=== PATIENT | female | born 1950 | race African-American/Black ===

== ENCOUNTER 2018-11-22 20:59 | Emergency (ER) | payer MEDICARE, MEDICAID ==
[~2018-11-22] VITALS: Ht 160 cm; Wt 60.8 kg
[~2018-11-22 20:59] MED LIST: AMLO10TA13 PO; CALC667C PO; CARV12.544 PO; HYDR-3682 PO; IBU600T PO; OME20T PO; PRAV20TA3 PO; SERT-275 PO
[2018-11-22] MEDS ORDERED: cloNIDine HCL 0.1 MG TAB PO ONE (21:15)
[2018-11-22 21:31] LABS: Basophils # (auto) 0.1 uL; Basophils % (auto) 2.1 % (0.0-2.0); Eosinophils # (auto) 0.2 uL; Hematocrit 35.1 % (36.0-46.0); Hemoglobin 11.5 g/dL (12.2-16.2); Lymphocytes # (auto) 0.8 uL; Lymphocytes % (auto) 19.6 % (10.0-50.0); Mean Corpuscular Hemoglobin 28.6 pg (28.0-32.0); Mean Corpuscular Hgb Conc. 32.9 g/dL (32.0-36.0); Mean Corpuscular Volume 87.1 fL (80.0-100.0); Monocytes # (auto) 0.5 uL; Monocytes % (auto) 11.3 % (0.0-12.0); Neutrophils # (auto) 2.5 uL; Nucleated Red Blood Cells % 0.1 %; Platelet Count (auto) 220 10^3/uL (140-450); Red Blood Cells 4.03 10^6/uL (4.0-5.20); Red Cell Distribution Width 16.5 % (11.8-14.3)
[2018-11-22 21:43] LABS: Albumin 3.6 g/dL (3.4-5.0); Anion Gap 13 (5-15); Calcium 8.4 mg/dL (8.5-10.1); Carbon Dioxide 29 mmol/L (21-32); Chloride 93 mmol/L (98-107); Glucose 282 mg/dL (74-106); Magnesium 2.6 mg/dL (1.6-2.6); Potassium 4.3 mmol/L (3.5-5.1); Sodium 135 mmol/L (136-145)
[2018-11-22 21:51] LABS: Alanine Aminotransferase 13 U/L (13-56); Alkaline Phosphatase 187 U/L (45-117); Aspartate Aminotransferase 13 U/L (15-37); BUN/Creatinine Ratio 8.5; Bilirubin, Total 0.3 mg/dL (0.2-1.0); GFR African American 5 mL/min; GFR Non-African American 4 mL/min; Total Protein 7.6 g/dL (6.4-8.2)
[2018-11-22 21:55] LABS: Blood Urea Nitrogen 81 mg/dL (7-18)
[2018-11-23] MEDS ORDERED: LABETALOL HCL 5 MG/ML ML 20ML VIAL IV ONE ×2 (00:15→01:15)
[2018-11-23] MEDS ORDERED: hydrALAZINE HCL 20 MG/ML VL IV ONE ×2 (02:30→03:30)
[2018-11-23 05:38] VITALS: BP 187/82
== END 2018-11-23 05:46 | disposition home or self-care (01) ==
LOC: ER 21:06
DX: I16.0 Hypertensive urgency (principal); J01.00 Acute maxillary sinusitis, unspecified; E11.22 Type 2 diabetes mellitus with diabetic chronic kidney disease; I12.0 Hypertensive chronic kidney disease with stage 5 chronic kidney disease or end stage renal disease; N18.6 End stage renal disease; Z79.899 Other long term (current) drug therapy
CPT/HCPCS: 36415; 71045; 80053; 83735; 84484; 85025; 85379; 93005; 94761; 96374; 96375; 96376; 99284; J0360

== ENCOUNTER 2019-02-02 08:49 | Inpatient (IN) | payer MEDICARE, MEDICAID ==
[~2019-02-02] VITALS: Ht 160 cm; Wt 62.2 kg
[2019-02-02 10:13] LABS: Basophils # (auto) 0 uL; Basophils % (auto) 0.9 % (0.0-2.0); Eosinophils # (auto) 0.1 uL; Eosinophils % (auto) 1.3 % (0.0-7.0); Hematocrit 31.8 % (36.0-46.0); Hemoglobin 10.6 g/dL (12.2-16.2); Lymphocytes # (auto) 0.5 uL; Mean Corpuscular Hemoglobin 28.9 pg (28.0-32.0); Mean Corpuscular Hgb Conc. 33.2 g/dL (32.0-36.0); Mean Corpuscular Volume 87.2 fL (80.0-100.0); Monocytes # (auto) 0.2 uL; Neutrophils # (auto) 3.4 uL; Neutrophils % (auto) 81.8 % (37.0-80.0); Platelet Count (auto) 211 10^3/uL (140-450); Red Blood Cells 3.65 10^6/uL (4.0-5.20); Red Cell Distribution Width 18.4 % (11.8-14.3); White Blood Cell 4.2 10^3/uL (4.4-10.8)
[2019-02-02 10:39] LABS: Alanine Aminotransferase 19 U/L (13-56); Albumin 3.7 g/dL (3.4-5.0); Amylase 107 U/L (25-115); Aspartate Aminotransferase 12 U/L (15-37); BUN/Creatinine Ratio 9.1; Blood Urea Nitrogen 66 mg/dL (7-18); Calcium 8.6 mg/dL (8.5-10.1); Chloride 94 mmol/L (98-107); GFR African American 7 mL/min; GFR Non-African American 6 mL/min; Glucose 346 mg/dL (74-106); Lipase 205 U/L (73-393); Magnesium 2.5 mg/dL (1.6-2.6); Potassium 4.6 mmol/L (3.5-5.1); Sodium 134 mmol/L (136-145)
[2019-02-02 10:51] LABS: Alkaline Phosphatase 187 U/L (45-117); Anion Gap 13 (5-15); Bilirubin, Total 0.4 mg/dL (0.2-1.0); Carbon Dioxide 27 mmol/L (21-32); Total Protein 7.8 g/dL (6.4-8.2)
[2019-02-02] MEDS ORDERED: SODIUM CHLORIDE 0.9% 1,000 ML IV ONE (11:38)
[2019-02-02] MEDS ORDERED: PROMETHAZINE HCL 25 MG/ML 1ML IV PRN (11:45)
[2019-02-02] MEDS ORDERED: NALBUPHINE HCL 10 MG/1ml INJECTION IV ONE (11:45)
[2019-02-02] MEDS ORDERED: MORPHINE SULF INJ 2 MG/ML SYRINGE 1ML IV PRN (14:30)
[2019-02-02] MEDS ORDERED: DEXTROSE (50%) 50ML SYRG IV PRN (14:30)
[2019-02-02] MEDS ORDERED: NITROGLYCERIN 0.4 MG SL TAB SL PRN (14:30)
[2019-02-02 17:17] VITALS: BP 163/72
[2019-02-02] MEDS: PRAVASTATIN SODIUM 20 MG TAB PO SCH (17:34)
[2019-02-02] MEDS: ACCU-CHEK COMFORT CURVE STRIP VI SCH ×2 (17:42→21:42)
[2019-02-02] MEDS: InsuLIN REG 1unit/0.01ml Soln (100units/ml) SC SCH ×2 (17:42→21:44)
[2019-02-02] MEDS: LABETALOL HCL 5 MG/ML ML 20ML VIAL IV PRN (17:43)
[2019-02-02] MEDS: CALCIUM ACETATE 667 MG CAP PO SCH (21:23)
[2019-02-02] MEDS: DOCUSATE SOD 100 MG CAP PO SCH (21:41)
[2019-02-02] MEDS: METOCLOPRAMIDE HCL 5MG/ml INJ 2ml VIAL IV SCH (21:41)
[2019-02-02] MEDS: CARVEDILOL 12.5 MG TAB PO SCH (21:42)
[2019-02-02 21:59] VITALS: BP 148/67
[2019-02-03 04:40] VITALS: BP 162/72
[2019-02-03] MEDS: LABETALOL HCL 5 MG/ML ML 20ML VIAL IV PRN ×2 (04:52→07:05)
[2019-02-03] MEDS: CALCIUM ACETATE 667 MG CAP PO SCH ×3 (06:00→22:00)
[2019-02-03] MEDS: METOCLOPRAMIDE HCL 5MG/ml INJ 2ml VIAL IV SCH ×3 (06:12→21:15)
[2019-02-03 06:24] LABS: Basophils # (auto) 0 uL; Basophils % (auto) 0.7 % (0.0-2.0); Eosinophils # (auto) 0.2 uL; Eosinophils % (auto) 3.2 % (0.0-7.0); Hematocrit 29.1 % (36.0-46.0); Hemoglobin 9.6 g/dL (12.2-16.2); Lymphocytes % (auto) 20.5 % (10.0-50.0); Mean Corpuscular Hemoglobin 29.1 pg (28.0-32.0); Mean Corpuscular Hgb Conc. 33.2 g/dL (32.0-36.0); Mean Corpuscular Volume 87.8 fL (80.0-100.0); Monocytes # (auto) 0.3 uL; Monocytes % (auto) 6.9 % (0.0-12.0); Neutrophils # (auto) 3.3 uL; Neutrophils % (auto) 68.7 % (37.0-80.0); Nucleated Red Blood Cells % 0.1 %; Platelet Count (auto) 200 10^3/uL (140-450); Red Blood Cells 3.32 10^6/uL (4.0-5.20); Red Cell Distribution Width 18.7 % (11.8-14.3); White Blood Cell 4.8 10^3/uL (4.4-10.8)
[2019-02-03] MEDS: ACCU-CHEK COMFORT CURVE STRIP VI SCH ×4 (06:33→22:29)
[2019-02-03] MEDS: InsuLIN REG 1unit/0.01ml Soln (100units/ml) SC SCH ×4 (06:34→22:29)
[2019-02-03 06:40] LABS: Calcium 8.3 mg/dL (8.5-10.1); Potassium 4.6 mmol/L (3.5-5.1)
[2019-02-03 06:41] LABS: INR 0.96 (0.9-1.15); Partial Thromboplastin Time 26.9 sec (23.64-32.05)
[2019-02-03 06:42] LABS: BUN/Creatinine Ratio 8.7
[2019-02-03 08:00] VITALS: BP 162/70
--- NOTE | 2019-02-03 08:05 | NUR ---
Opening Shift Note Received report on the patient. Awake lying in bed. Patient shows no signs of distress at this time. Discussed the plan of care with the patient. Bed is in the lowest position, side rails up x2, and call light is within reach. Will continue to monitor.
[2019-02-03 09:00] VITALS: BP 155/69
[2019-02-03] MEDS ORDERED: OMEPRAZOLE 20MG/10ML ORAL SUSP PO SCH (10:00)
[2019-02-03] MEDS: DOCUSATE SOD 100 MG CAP PO SCH ×2 (10:00→21:17)
[2019-02-03] MEDS ORDERED: PANTOPRAZOLE 40 MG TAB PO SCH (10:00)
[2019-02-03] MEDS ORDERED: SERTRALINE HCL 50 MG TAB PO SCH (10:00)
[2019-02-03] MEDS: amLODIPine BESYLATE 5 MG TAB PO SCH (10:08)
[2019-02-03] MEDS: CARVEDILOL 12.5 MG TAB PO SCH ×2 (10:08→21:16)
[2019-02-03] MEDS ORDERED: diphenhdrAMINE HCL 50 MG/1 ML VL IM ONE (11:45)
[2019-02-03] MEDS ORDERED: diphenhdrAMINE HCL 50 MG/1 ML VL ONE (11:56)
[2019-02-03 13:00] VITALS: BP 157/68
[2019-02-03] MEDS ORDERED: LOPERAMIDE HCL 2 MG CAP PO ONE (16:30)
[2019-02-03] MEDS ORDERED: LOPERAMIDE HCL 2 MG CAP PO PRN (16:30)
--- NOTE | 2019-02-03 17:01 | NUR ---
GI Consult GI Consult called in by community living specialist, no answer. paralegal legal secretary left a message.
[2019-02-03] MEDS: PRAVASTATIN SODIUM 20 MG TAB PO SCH (17:33)
--- NOTE | 2019-02-03 19:57 | NUR ---
Opening Shift Note Assumed care of patient, awake and alert. No S/S of distress/SOB or pain. Instructed on POC and to call for assist PRN, will continue to monitor for changes Q1hr and PRN.
--- NOTE | 2019-02-03 20:00 | NUR ---
Called/paged Dr. Renu Pierce. called re:itching medicine . Waiting for call back. Continue care.
[2019-02-03 22:00] VITALS: BP 158/80
--- NOTE | 2019-02-03 22:00 | NUR ---
Called/paged Dr. Renu Pierce. called re:itching med. . Waiting for call back. Continue care.
--- NOTE | 2019-02-03 23:03 | NUR ---
Called/paged Dr. Renu Pierce. called re:itching med. . Waiting for call back. Continue care.
--- NOTE | 2019-02-04 03:28 | NUR ---
returned call Dr. Sears,T returned call, updated on patient status and reason for call, orders received of hydroxyzine 25mg.p.o.one tab. every 6 hours as needed for itching. Continue care.
[2019-02-04] MEDS ORDERED: hydrOXYzine 25 MG TAB or CAP PO PRN (03:30)
[2019-02-04 04:58] VITALS: BP 150/69
[2019-02-04] MEDS: CALCIUM ACETATE 667 MG CAP PO SCH ×2 (05:35→14:00)
[2019-02-04 05:39] LABS: Urine Bacteria FEW /hpf (None Seen); Urine Blood Negative /uL (Negative); Urine Specific Gravity 1.014 (1.001-1.035); Urine WBC 26 /hpf (0 - 5)
[2019-02-04] MEDS: ACCU-CHEK COMFORT CURVE STRIP VI SCH ×2 (06:07→11:30)
[2019-02-04] MEDS: InsuLIN REG 1unit/0.01ml Soln (100units/ml) SC SCH ×2 (06:08→11:30)
--- NOTE | 2019-02-04 06:42 | NUR ---
Called/paged Dr. Sears, T called re:patient positive for urinary tract infection. . Waiting for call back. Continue care.
--- NOTE | 2019-02-04 06:45 | NUR ---
returned call Kari Hazel. returned call, updated on patient status and reason for call, orders received Rocephine one gram daily. Continue care.
[2019-02-04] MEDS ORDERED: SODIUM CHL 0.9% 1000 ML BAG XX ONE (07:00)
--- NOTE | 2019-02-04 07:34 | NUR ---
Report given to Suzanna Victoria, patient is resting no distress, for hemodialysis today.
--- NOTE | 2019-02-04 07:35 | NUR ---
Opening Shift Note Assumed care of patient, awake and alert. No S/S of distress/SOB or pain reported at this time. Instructed on POC and to call for assist PRN, bed alarm on and call light within reach, will continue to monitor for changes Q1hr and PRN.
[2019-02-04 08:00] VITALS: BP 161/70
[2019-02-04 09:00] VITALS: BP 161/70
[2019-02-04] MEDS ORDERED: cefTRIAXone 1GM/50ML D5W 50 ML IV SCH (09:00)
--- NOTE | 2019-02-04 10:00 | NUR ---
DAILY MEDICATION HELD DUE TO PENDING DIALYSIS
[2019-02-04] MEDS ORDERED: ACETAMINOPHEN 325 MG TAB PO PRN (11:30)
--- NOTE | 2019-02-04 12:25 | NUR ---
DIALYSIS IN PROCESS
[2019-02-04] MEDS ORDERED: diphenhdrAMINE HCL 50 MG/1 ML VL IV ONE (12:30)
[2019-02-04 13:00] VITALS: BP 188/88
--- NOTE | 2019-02-04 13:42 | NUR ---
GI DR MULLINS AT BEDSIDE, DISCUSSING POC WITH PT AND FAMILY, CONT CARE
[2019-02-04] MEDS: CARVEDILOL 12.5 MG TAB PO SCH (14:11)
[2019-02-04] MEDS: amLODIPine BESYLATE 5 MG TAB PO SCH (14:11)
--- NOTE | 2019-02-04 14:42 | NUR ---
DIALYSIS COMPLETE 2 LITERS REMOVED, VS 142/70, P 72, PT ASYMPTOMATIC, NO C/O PAIN, SOB OR ANY OTHER DISCOMFORT, CONT CARE
--- NOTE | 2019-02-04 15:00 | NUR ---
MD JOSS COREAS, REGARDING PATIENT REQUESTING TO BE DISCHARGED SINCE GI ORDERED NO FURTHER MEDICAL INTERVENTION AND SHE IS NO LONGER C/O ABD PAIN, PT ENCOURAGED TO WAIT FOR MD, STATES " IF I HAVE TO LEAVE AGAINST MEDICAL ADVICE, I WILL", WILL WAIT FOR MD TO CALL BACK, CONT CARE
--- NOTE | 2019-02-04 15:56 | NUR ---
MD JOSS COREAS, PATIENT REQUESTING TO LEAVE AGAINST MEDICAL ADVICE, STATES " THE GI DOCTOR SAID I CAN COME SEE HIM OUTPATIENT, I DONT HAVE PAIN ANYMORE", PATIENT IN TEARS, SPEAKING TO FAMILY OVER THE PHONE, CALLING FOR TRANSPORTATION, PATIENT ENCOURAGED TO STAY, AWAITING MD CALL BACK, [facility]
--- NOTE | 2019-02-04 16:15 | NUR ---
PATIENT AMBULATING WITH PHYSICAL THERAPIST PT TOLERATING WELL, CONT CARE
--- NOTE | 2019-02-04 16:45 | NUR ---
assessment Per consult discharge planning. Patient left AMA prior to being assessed. Addendum: 02/05/19 at 1519 by Shreya Malone Amended: Links added.
--- NOTE | 2019-02-04 16:52 | NUR ---
AMA Note EARLENE MARTINEZ states they want to leave the hospital Against Medical Advice (AMA). Patient encouraged to stay for further treatment/ and stabilization. Crescencio Gomez ([employer]) paged to notify of patient's wishes. Patient advised of the risks and benefits of leaving AMA. Patient verbalized understanding. Patient encouraged to return to the ER if symptoms do not improve or worsen. IV removed and catheter tip was inspected, intact, Tele returned to ICU, family accompanied patient upon leaving
--- NOTE | 2019-02-04 16:54 | NUR ---
LEAD PRESSMAN Crescencio Gomez paged regarding patient leaving AMA
--- NOTE | 2019-02-04 17:03 | NUR ---
MD CALL BACK (ATLASSIAN ADMINISTRATOR) ОЛЬГА VERA AND DR VITAL CALLED BACK AND MADE AWARE PATIENT LEFT AMA, CONT CARE
[2019-02-04] MEDS ORDERED: EPOETIN ALFA 4,000 UNIT/ML VL SC ONE (21:00)
== END 2019-02-04 16:52 | disposition left against medical advice (07) | DRG 391 ==
LOC: EDBD 08:49 → ER 08:53 → TELE 08:54 → TELE-CENTR 17:21
PROVIDERS: ADMIT Nurse Practitioner Acute Care; ATTEND Internal Medicine
PROC: 5A1D70Z Performance of Urinary Filtration, Intermittent, Less than 6 Hours Per Day (ICD-10-PCS; principal; 2019-02-04)
DX: K29.70 Gastritis, unspecified, without bleeding (principal); N18.6 End stage renal disease; I50.33 Acute on chronic diastolic (congestive) heart failure; I13.2 Hypertensive heart and chronic kidney disease with heart failure and with stage 5 chronic kidney disease, or end stage renal disease; I44.7 Left bundle-branch block, unspecified; E11.22 Type 2 diabetes mellitus with diabetic chronic kidney disease; D63.1 Anemia in chronic kidney disease; E78.5 Hyperlipidemia, unspecified; E78.00 Pure hypercholesterolemia, unspecified; F32.9 Major depressive disorder, single episode, unspecified; F41.9 Anxiety disorder, unspecified; Z53.29 Procedure and treatment not carried out because of patient's decision for other reasons; K21.9 Gastro-esophageal reflux disease without esophagitis; Z79.899 Other long term (current) drug therapy; Z99.2 Dependence on renal dialysis; Z86.73 Personal history of transient ischemic attack (TIA), and cerebral infarction without residual deficits; Z79.4 Long term (current) use of insulin; Z82.49 Family history of ischemic heart disease and other diseases of the circulatory system; Z90.710 Acquired absence of both cervix and uterus
CPT/HCPCS: 36415; 71046; 74176; 80048; 80053; 81001; 82150; 82728; 82962; 83036; 83690; 83735; 84484; 85025; 85610; 85730; 86141; 87086; 90935; 93005; 96374; 96375; G0378; J1815

== ENCOUNTER 2020-06-27 12:43 | Emergency (ER) | payer MEDICARE, MEDICAID ==
[~2020-06-27] VITALS: Ht 160 cm; Wt 56.2 kg
[~2020-06-27 12:43] MED LIST changes: +AMLO-496 PO; -AMLO10TA13 PO; -IBU600T PO; +IBUP600T28 PO
[2020-06-27] MEDS ORDERED: cefTRIAXone SOD 1,000 MG VL IM ONE (14:45)
[2020-06-27] MEDS ORDERED: LIDOCAINE 1% HCL (LOCAL ANESTH.) INJ 20ML MDV IJ ONE (14:45)
[2020-06-27 15:30] VITALS: BP 189/69
== END 2020-06-27 15:40 | disposition home or self-care (01) ==
LOC: ER 12:43
DX: M27.2 Inflammatory conditions of jaws (principal); L02.01 Cutaneous abscess of face; E11.22 Type 2 diabetes mellitus with diabetic chronic kidney disease; I12.0 Hypertensive chronic kidney disease with stage 5 chronic kidney disease or end stage renal disease; N18.6 End stage renal disease; E78.5 Hyperlipidemia, unspecified; Z90.710 Acquired absence of both cervix and uterus; Z86.73 Personal history of transient ischemic attack (TIA), and cerebral infarction without residual deficits
CPT/HCPCS: 10060; 87205; 96372; 99283; J0696; J2001

== ENCOUNTER 2020-06-30 14:15 | Emergency (ER) | payer MEDICARE, MEDICAID ==
[~2020-06-30] VITALS: Ht 160 cm; Wt 56.7 kg
[~2020-06-30 14:15] MED LIST changes: -SERT-275 PO; +SERT25TA14 PO
[2020-06-30 14:17] VITALS: BP 150/48
== END 2020-06-30 16:22 | disposition home or self-care (01) ==
LOC: ER 14:15
DX: Z48.00 Encounter for change or removal of nonsurgical wound dressing (principal); K21.9 Gastro-esophageal reflux disease without esophagitis; E11.22 Type 2 diabetes mellitus with diabetic chronic kidney disease; I12.9 Hypertensive chronic kidney disease with stage 1 through stage 4 chronic kidney disease, or unspecified chronic kidney disease; N18.6 End stage renal disease; E78.5 Hyperlipidemia, unspecified; Z90.710 Acquired absence of both cervix and uterus; Z79.899 Other long term (current) drug therapy

== ENCOUNTER 2020-07-07 11:30 | Emergency (ER) | payer MEDICARE, MEDICAID ==
[~2020-07-07] VITALS: Ht 160 cm; Wt 61.7 kg
[~2020-07-07 11:30] MED LIST changes: +SERT-275 PO; -SERT25TA14 PO
[2020-07-07 11:56] VITALS: BP 188/68
== END 2020-07-07 13:20 | disposition home or self-care (01) ==
LOC: ER 11:30
DX: M27.2 Inflammatory conditions of jaws (principal); E11.22 Type 2 diabetes mellitus with diabetic chronic kidney disease; I12.0 Hypertensive chronic kidney disease with stage 5 chronic kidney disease or end stage renal disease; N18.6 End stage renal disease; K21.9 Gastro-esophageal reflux disease without esophagitis; E78.5 Hyperlipidemia, unspecified; Z90.710 Acquired absence of both cervix and uterus; Z79.899 Other long term (current) drug therapy

== ENCOUNTER 2020-08-05 08:35 | Emergency (ER) | payer MEDICARE, MEDICAID ==
[~2020-08-05] VITALS: Ht 160 cm; Wt 57.2 kg
[~2020-08-05 08:35] MED LIST changes: -SERT-275 PO; +SERT25TA14 PO
[2020-08-05 09:20] VITALS: BP 161/50
== END 2020-08-05 09:37 | disposition home or self-care (01) ==
LOC: ER 08:35
DX: S00.03XA Contusion of scalp, initial encounter (principal); E11.9 Type 2 diabetes mellitus without complications; I10 Essential (primary) hypertension; E78.5 Hyperlipidemia, unspecified; Z86.73 Personal history of transient ischemic attack (TIA), and cerebral infarction without residual deficits; Z90.49 Acquired absence of other specified parts of digestive tract; Z79.899 Other long term (current) drug therapy; Z90.710 Acquired absence of both cervix and uterus; W01.0XXA Fall on same level from slipping, tripping and stumbling without subsequent striking against object, initial encounter; Y93.89 Activity, other specified; Y92.89 Other specified places as the place of occurrence of the external cause; Y99.8 Other external cause status
CPT/HCPCS: 70450

== ENCOUNTER 2020-08-24 02:58 | Inpatient (IN) | payer MEDICARE, MEDICAID ==
[~2020-08-24] VITALS: Ht 160 cm; Wt 56.6 kg
[2020-08-24 04:20] LABS: Basophils # (auto) 0 10 ^3/uL (0-0.2); Basophils % (auto) 0.6 % (0.0-2.0); Eosinophils # (auto) 0.1 10 ^3/uL (0-0.8); Eosinophils % (auto) 1.7 % (0.0-7.0); Hematocrit 36.3 % (36.0-46.0); Lymphocytes # (auto) 0.3 10 ^3/uL (0.4-5.4); Lymphocytes % (auto) 6.2 % (10.0-50.0); Mean Corpuscular Hemoglobin 29.5 pg (28.0-32.0); Mean Corpuscular Hgb Conc. 33.1 g/dL (32.0-36.0); Mean Corpuscular Volume 89.1 fL (80.0-100.0); Monocytes # (auto) 0.2 10 ^3/uL (0-1.3); Neutrophils # (auto) 4.3 10 ^3/uL (1.6-8.6); Neutrophils % (auto) 87.5 % (37.0-80.0); Nucleated Red Blood Cells % 0.1 %; Platelet Count (auto) 217 10^3/uL (140-450); Red Blood Cells 4.08 10^6/uL (4.0-5.20); Red Cell Distribution Width 19.5 % (11.8-14.3); White Blood Cell 4.9 10^3/uL (4.4-10.8)
[2020-08-24 04:34] LABS: INR 1.04 (0.9-1.15)
[2020-08-24 04:42] LABS: Albumin 3.3 g/dL (3.4-5.0); Anion Gap 16 (5-15); Blood Alcohol < 3.0 mg/dL (0-5); Calcium 9.1 mg/dL (8.5-10.1); Carbon Dioxide 26 mmol/L (21-32); Chloride 90 mmol/L (98-107); Lipase 482 U/L (73-393); Magnesium 2.7 mg/dL (1.6-2.6); Potassium 5.2 mmol/L (3.5-5.1); Sodium 132 mmol/L (136-145)
[2020-08-24 04:51] LABS: Alanine Aminotransferase 18 U/L (13-56); Alkaline Phosphatase 172 U/L (45-117); Aspartate Aminotransferase 13 U/L (15-37); BUN/Creatinine Ratio 13.1; Bilirubin, Total 0.3 mg/dL (0.2-1.0); GFR African American 7 mL/min; GFR Non-African American 6 mL/min; Phosphorus 6.9 mg/dL (2.5-4.90); Total Protein 7.2 g/dL (6.4-8.2)
[2020-08-24 04:52] LABS: Glucose 513 mg/dL (74-106)
[2020-08-24 04:53] LABS: Blood Urea Nitrogen 94 mg/dL (7-18)
[2020-08-24] MEDS ORDERED: InsuLIN REG 1unit/0.01ml Soln (100units/ml) IV ONE (05:15)
[2020-08-24 06:00] LABS: Lactic Acid w/Reflex 3.4 mmol/L (0.4-2.0)
[2020-08-24] MEDS ORDERED: PANTOPRAZOLE 40 MG/10 ML VIAL INJ IV ONE (06:15)
[2020-08-24] MEDS ORDERED: ONDANSETRON HCL 4 MG/2 ML VIAL IV ONE (06:15)
[2020-08-24] MEDS ORDERED: fentaNYL CITRATE 100 MCG/2 ML VL IV ONE (06:15)
[2020-08-24] MEDS ORDERED: BUMETANIDE 2.5mg/10ml (0.25 mg/ml) INJ IV ONE (09:00)
[2020-08-24] MEDS ORDERED: DEXTROSE (50%) 50ML SYRG IV PRN (09:00)
[2020-08-24] MEDS ORDERED: ONDANSETRON HCL 4 MG/2 ML VIAL IV PRN (09:00)
[2020-08-24] MEDS ORDERED: ACETAMINOPHEN 500 MG TAB PO PRN (09:00)
[2020-08-24] MEDS ORDERED: MORPHINE SULF INJ 2 MG/ML SYRINGE 1ML IV PRN ×2 (09:00)
[2020-08-24] MEDS ORDERED: NITROGLYCERIN 0.4 MG SL TAB SL PRN (09:00)
[2020-08-24] MEDS: CARVEDILOL 12.5 MG TAB PO SCH ×2 (10:21→21:37)
[2020-08-24] MEDS: amLODIPine BESYLATE 5 MG TAB PO SCH (10:22)
[2020-08-24] MEDS: LISINOPRIL 10 MG TAB PO SCH (10:22)
[2020-08-24] MEDS: HYDROcodone-ACET 5/325MG TAB PO PRN (10:23)
[2020-08-24] MEDS: INSULIN LANTUS (GLARGINE) 1 /0.01ml (100units/ml) SC SCH (10:38)
[2020-08-24] MEDS: DOCUSATE SOD 100 MG CAP PO SCH ×2 (10:53→21:36)
[2020-08-24] MEDS: InsuLIN REG 1unit/0.01ml Soln (100units/ml) SC SCH ×4 (12:00→23:33)
[2020-08-24 12:33] VITALS: BP 104/41
[2020-08-24] MEDS: ACCU-CHEK COMFORT CURVE STRIP VI SCH ×4 (13:03→23:34)
[2020-08-24] MEDS ORDERED: SODIUM CHL 0.9% 1000 ML BAG XX ONE (13:15)
[2020-08-24 13:21] VITALS: BP 104/41
[2020-08-24] MEDS: CALCIUM ACETATE 667 MG CAP PO SCH ×2 (14:00→21:36)
[2020-08-24] MEDS ORDERED: diphenhdrAMINE HCL 50 MG/1 ML VL IV ONE (15:30)
[2020-08-24 16:56] VITALS: BP 127/52
[2020-08-24] MEDS: PRAVASTATIN SODIUM 20 MG TAB PO SCH (18:00)
[2020-08-24] MEDS ORDERED: EPOETIN ALFA-EPBX 4,000 UNIT/ML VIAL SC ONE (21:00)
[2020-08-24 22:00] VITALS: BP 142/64
[2020-08-24] MEDS ORDERED: diphenhdrAMINE HCL 25 MG CAP PO ONE (23:00)
[2020-08-25] MEDS: InsuLIN REG 1unit/0.01ml Soln (100units/ml) SC SCH ×5 (04:00→20:00)
[2020-08-25] MEDS: ACCU-CHEK COMFORT CURVE STRIP VI SCH ×5 (04:02→20:11)
[2020-08-25 05:00] VITALS: BP 156/78
[2020-08-25] MEDS: CALCIUM ACETATE 667 MG CAP PO SCH ×3 (05:19→21:09)
[2020-08-25] MEDS ORDERED: VANCOMYCIN PER PHARMACY 0 MG IV SCH (06:45)
[2020-08-25] MEDS ORDERED: VANCOMYCIN 1GM/250ML 250 ML IV ONE (08:00)
[2020-08-25] MEDS ORDERED: ADENOSINE 52 MG in GIVE UN-DILUTED 0 ML IV ONE (08:15)
[2020-08-25] MEDS: hydrALAZINE HCL 20 MG/ML VL IV PRN (08:31)
[2020-08-25 09:00] VITALS: BP 167/82
[2020-08-25] MEDS ORDERED: diphenhdrAMINE HCL 50 MG/1 ML VL IV ONE (09:30)
[2020-08-25] MEDS: INSULIN LANTUS (GLARGINE) 1 /0.01ml (100units/ml) SC SCH (10:00)
[2020-08-25] MEDS ORDERED: AZITHROMYCIN 250 MG TAB PO ONE (11:00)
[2020-08-25] MEDS ORDERED: cefTRIAXone 1GM/50ML D5W 50 ML IV ONE (11:00)
[2020-08-25] MEDS: CARVEDILOL 12.5 MG TAB PO SCH ×2 (12:16→21:15)
[2020-08-25] MEDS: amLODIPine BESYLATE 5 MG TAB PO SCH (12:16)
[2020-08-25] MEDS: LISINOPRIL 10 MG TAB PO SCH (12:17)
[2020-08-25] MEDS: DOCUSATE SOD 100 MG CAP PO SCH ×2 (12:18→21:09)
[2020-08-25 13:00] VITALS: BP 145/76
[2020-08-25] MEDS ORDERED: DOBUTamine 1000MCG/ML 250 ML IV ONE (15:51)
[2020-08-25] MEDS ORDERED: ATROPINE SULF 0.5 MG/5ML SYR ONE (16:10)
[2020-08-25 17:00] VITALS: BP 147/73
[2020-08-25] MEDS: PRAVASTATIN SODIUM 20 MG TAB PO SCH (18:04)
[2020-08-25] MEDS ORDERED: LOPERAMIDE HCL 2 MG CAP PO PRN (21:00)
[2020-08-25] MEDS ORDERED: ACETAMINOPHEN 650 mg PER 20.3 mL UD GT PRN (22:00)
[2020-08-25 22:11] VITALS: BP 161/71
[2020-08-26] MEDS: ACCU-CHEK COMFORT CURVE STRIP VI SCH ×6 (00:36→20:09)
[2020-08-26] MEDS: hydrALAZINE HCL 20 MG/ML VL IV PRN (00:41)
[2020-08-26] MEDS: HYDROcodone-ACET 5/325MG TAB PO PRN ×2 (03:30→17:27)
[2020-08-26] MEDS: InsuLIN REG 1unit/0.01ml Soln (100units/ml) SC SCH ×6 (04:00→20:07)
[2020-08-26 05:00] VITALS: BP 145/71
[2020-08-26 06:08] LABS: Basophils # (auto) 0 10 ^3/uL (0-0.2); Basophils % (auto) 0.6 % (0.0-2.0); Eosinophils # (auto) 0 10 ^3/uL (0-0.8); Eosinophils % (auto) 0.7 % (0.0-7.0); Lymphocytes # (auto) 0.2 10 ^3/uL (0.4-5.4); Lymphocytes % (auto) 3.3 % (10.0-50.0); Mean Corpuscular Hemoglobin 29.2 pg (28.0-32.0); Mean Corpuscular Hgb Conc. 33.3 g/dL (32.0-36.0); Mean Corpuscular Volume 87.8 fL (80.0-100.0); Monocytes # (auto) 0.7 10 ^3/uL (0-1.3); Monocytes % (auto) 9.2 % (0.0-12.0); Neutrophils # (auto) 6.2 10 ^3/uL (1.6-8.6); Neutrophils % (auto) 86.2 % (37.0-80.0); Nucleated Red Blood Cells % 0.1 %; Platelet Count (auto) 201 10^3/uL (140-450); Red Blood Cells 3.75 10^6/uL (4.0-5.20); Red Cell Distribution Width 19.4 % (11.8-14.3); White Blood Cell 7.1 10^3/uL (4.4-10.8)
[2020-08-26 06:21] LABS: INR 1.07 (0.9-1.15); Partial Thromboplastin Time 30.3 sec (23.0-31.2)
[2020-08-26 06:27] LABS: Potassium 5.2 mmol/L (3.5-5.1)
[2020-08-26 06:31] LABS: BUN/Creatinine Ratio 8.9
[2020-08-26] MEDS ORDERED: SODIUM CHL 0.9% 1000 ML BAG XX ONE (07:00)
[2020-08-26] MEDS: CALCIUM ACETATE 667 MG CAP PO SCH ×3 (08:00→17:56)
[2020-08-26 09:00] VITALS: BP 168/65
[2020-08-26] MEDS: diphenhdrAMINE HCL 25 MG CAP PO PRN ×2 (09:09→20:04)
[2020-08-26] MEDS: INSULIN LANTUS (GLARGINE) 1 /0.01ml (100units/ml) SC SCH (10:00)
[2020-08-26] MEDS: amLODIPine BESYLATE 5 MG TAB PO SCH (11:43)
[2020-08-26] MEDS: DOCUSATE SOD 100 MG CAP PO SCH ×2 (11:44→22:16)
[2020-08-26] MEDS: AZITHROMYCIN 250 MG TAB PO SCH (11:45)
[2020-08-26] MEDS: CARVEDILOL 12.5 MG TAB PO SCH ×2 (11:47→22:17)
[2020-08-26] MEDS: LISINOPRIL 10 MG TAB PO SCH (11:48)
[2020-08-26] MEDS: cefTRIAXone 1GM/50ML D5W 50 ML IV SCH (11:49)
[2020-08-26 13:00] VITALS: BP 169/76
[2020-08-26] MEDS ORDERED: MIDAZOLAM HCL 1MG/1ML-2 ML VIAL ONE (13:56)
[2020-08-26] MEDS ORDERED: fentaNYL CITRATE 100 MCG/2 ML VL ONE (13:56)
[2020-08-26] MEDS ORDERED: SODIUM CHL 0.9% 0 ML ONE (13:57)
[2020-08-26] MEDS ORDERED: ANGIOMAX 250 MG VIAL IV ONE (13:57)
[2020-08-26] MEDS ORDERED: IOHEXOL 350 MG/ML 100ML IJ ONE (14:14)
[2020-08-26] MEDS ORDERED: LIDOCAINE 2%HCL (LOCAL ANESTH.) INJ 20ML MDV ONE (14:14)
[2020-08-26] MEDS ORDERED: IODIXANOL 320MG/ML 100ML BTL IV ONE (14:53)
[2020-08-26] MEDS ORDERED: ACETAMINOPHEN 650 mg PER 20.3 mL UD PO PRN (16:00)
[2020-08-26 16:39] VITALS: BP 148/76
[2020-08-26] MEDS: PRAVASTATIN SODIUM 20 MG TAB PO SCH (17:56)
[2020-08-26] MEDS ORDERED: EPOETIN ALFA-EPBX 4,000 UNIT/ML VIAL SC ONE (21:00)
[2020-08-26 22:00] VITALS: BP 145/57
[2020-08-26] MEDS: SODIUM CHLOR 0.9% PF (SALINE LOCK) 10ML VIAL/SYR IV SCH (22:16)
[2020-08-27] MEDS: ACCU-CHEK COMFORT CURVE STRIP VI SCH ×6 (01:13→19:44)
[2020-08-27] MEDS: InsuLIN REG 1unit/0.01ml Soln (100units/ml) SC SCH ×6 (03:49→19:45)
[2020-08-27] MEDS: diphenhdrAMINE HCL 25 MG CAP PO PRN ×3 (03:49→20:14)
[2020-08-27 05:00] VITALS: BP 167/75
[2020-08-27] MEDS: hydrALAZINE HCL 20 MG/ML VL IV PRN (05:46)
[2020-08-27] MEDS: SODIUM CHLOR 0.9% PF (SALINE LOCK) 10ML VIAL/SYR IV SCH ×3 (05:46→21:29)
[2020-08-27 06:39] LABS: Basophils # (auto) 0 10 ^3/uL (0-0.2); Basophils % (auto) 0.8 % (0.0-2.0); Eosinophils # (auto) 0.1 10 ^3/uL (0-0.8); Eosinophils % (auto) 1.8 % (0.0-7.0); Hematocrit 32.7 % (36.0-46.0); Hemoglobin 10.9 g/dL (12.2-16.2); Lymphocytes # (auto) 0.3 10 ^3/uL (0.4-5.4); Lymphocytes % (auto) 6.6 % (10.0-50.0); Mean Corpuscular Hemoglobin 29.3 pg (28.0-32.0); Mean Corpuscular Hgb Conc. 33.3 g/dL (32.0-36.0); Monocytes # (auto) 0.5 10 ^3/uL (0-1.3); Monocytes % (auto) 9.3 % (0.0-12.0); Neutrophils % (auto) 81.5 % (37.0-80.0); Platelet Count (auto) 196 10^3/uL (140-450); Red Blood Cells 3.72 10^6/uL (4.0-5.20); Red Cell Distribution Width 18.6 % (11.8-14.3); White Blood Cell 4.9 10^3/uL (4.4-10.8)
[2020-08-27 06:54] LABS: Calcium 8.8 mg/dL (8.5-10.1); Potassium 4.6 mmol/L (3.5-5.1)
[2020-08-27 06:57] LABS: BUN/Creatinine Ratio 8.1
[2020-08-27] MEDS: CALCIUM ACETATE 667 MG CAP PO SCH ×3 (08:37→18:33)
[2020-08-27] MEDS: cefTRIAXone 1GM/50ML D5W 50 ML IV SCH (08:38)
[2020-08-27] MEDS: DOCUSATE SOD 100 MG CAP PO SCH ×2 (08:38→21:29)
[2020-08-27] MEDS: AZITHROMYCIN 250 MG TAB PO SCH (08:38)
[2020-08-27 09:00] VITALS: BP 152/62
[2020-08-27] MEDS: CARVEDILOL 12.5 MG TAB PO SCH ×2 (09:51→21:30)
[2020-08-27] MEDS: amLODIPine BESYLATE 5 MG TAB PO SCH (09:52)
[2020-08-27] MEDS: LISINOPRIL 10 MG TAB PO SCH (09:52)
[2020-08-27] MEDS: INSULIN LANTUS (GLARGINE) 1 /0.01ml (100units/ml) SC SCH (10:02)
[2020-08-27] MEDS: HYDROcodone-ACET 5/325MG TAB PO PRN (10:03)
[2020-08-27] MEDS ORDERED: CLOPIDOGREL BISULFATE 75 MG TAB PO ONE (11:45)
[2020-08-27 13:00] VITALS: BP 136/64
[2020-08-27] MEDS ORDERED: LORazepam 0.5 MG TAB PO ONE (15:30)
[2020-08-27 17:00] VITALS: BP 140/65
[2020-08-27] MEDS: PRAVASTATIN SODIUM 20 MG TAB PO SCH (18:33)
[2020-08-27 22:00] VITALS: BP 154/74
[2020-08-28] MEDS: ACCU-CHEK COMFORT CURVE STRIP VI SCH ×5 (00:03→15:50)
[2020-08-28] MEDS: InsuLIN REG 1unit/0.01ml Soln (100units/ml) SC SCH ×5 (04:00→15:50)
[2020-08-28 05:00] VITALS: BP 148/71
[2020-08-28] MEDS: SODIUM CHLOR 0.9% PF (SALINE LOCK) 10ML VIAL/SYR IV SCH ×2 (05:36→14:00)
[2020-08-28 05:46] LABS: Basophils # (auto) 0.1 10 ^3/uL (0-0.2); Basophils % (auto) 1.6 % (0.0-2.0); Eosinophils # (auto) 0.2 10 ^3/uL (0-0.8); Eosinophils % (auto) 5.3 % (0.0-7.0); Hematocrit 31.4 % (36.0-46.0); Hemoglobin 10.1 g/dL (12.2-16.2); Lymphocytes # (auto) 0.7 10 ^3/uL (0.4-5.4); Lymphocytes % (auto) 15.8 % (10.0-50.0); Mean Corpuscular Hemoglobin 28.2 pg (28.0-32.0); Mean Corpuscular Hgb Conc. 32.2 g/dL (32.0-36.0); Mean Corpuscular Volume 87.6 fL (80.0-100.0); Monocytes # (auto) 0.5 10 ^3/uL (0-1.3); Monocytes % (auto) 11.7 % (0.0-12.0); Neutrophils # (auto) 2.9 10 ^3/uL (1.6-8.6); Neutrophils % (auto) 65.6 % (37.0-80.0); Platelet Count (auto) 215 10^3/uL (140-450); Red Blood Cells 3.59 10^6/uL (4.0-5.20); White Blood Cell 4.4 10^3/uL (4.4-10.8)
[2020-08-28 06:01] LABS: BUN/Creatinine Ratio 10.2; Calcium 9.1 mg/dL (8.5-10.1); Potassium 5.1 mmol/L (3.5-5.1)
[2020-08-28] MEDS ORDERED: SODIUM CHL 0.9% 1000 ML BAG XX ONE (07:00)
[2020-08-28] MEDS: DOCUSATE SOD 100 MG CAP PO SCH (08:23)
[2020-08-28] MEDS: cefTRIAXone 1GM/50ML D5W 50 ML IV SCH (08:23)
[2020-08-28] MEDS: CALCIUM ACETATE 667 MG CAP PO SCH ×3 (08:23→18:00)
[2020-08-28] MEDS: AZITHROMYCIN 250 MG TAB PO SCH (08:24)
[2020-08-28 09:00] VITALS: BP 187/72
[2020-08-28] MEDS: amLODIPine BESYLATE 5 MG TAB PO SCH (10:00)
[2020-08-28] MEDS: CARVEDILOL 12.5 MG TAB PO SCH (10:00)
[2020-08-28] MEDS ORDERED: CLOPIDOGREL BISULFATE 75 MG TAB PO SCH (10:00)
[2020-08-28] MEDS: LISINOPRIL 10 MG TAB PO SCH (10:00)
[2020-08-28] MEDS: INSULIN LANTUS (GLARGINE) 1 /0.01ml (100units/ml) SC SCH (12:33)
[2020-08-28 12:58] VITALS: BP 178/71
[2020-08-28] MEDS ORDERED: CLOP75TA28 PO (13:01)
[2020-08-28] MEDS ORDERED: AMOX500T86 PO (13:03)
[2020-08-28] MEDS: diphenhdrAMINE HCL 25 MG CAP PO PRN (13:25)
[2020-08-28] MEDS ORDERED: CARV12.544 PO (14:06)
[2020-08-28] MEDS: HYDROcodone-ACET 5/325MG TAB PO PRN (14:53)
[2020-08-28 14:57] VITALS: BP 138/71
[2020-08-28] MEDS: hydrALAZINE HCL 20 MG/ML VL IV PRN (16:28)
[2020-08-28 17:00] VITALS: BP 158/72
[2020-08-28] MEDS: PRAVASTATIN SODIUM 20 MG TAB PO SCH (18:00)
[2020-08-28] MEDS ORDERED: EPOETIN ALFA-EPBX 4,000 UNIT/ML VIAL SC ONE (21:00)
== END 2020-08-28 18:39 | disposition home health service (06) | DRG 291 ==
LOC: ER 02:58 → EDBD 02:58 → TELE 08:57 → TELE-CENTR 12:07 → TELE-WESTW 08-25 21:59
PROVIDERS: ADMIT Nurse Practitioner Acute Care; ATTEND Internal Medicine Pulmonary Disease
PROC: 5A1D70Z Performance of Urinary Filtration, Intermittent, Less than 6 Hours Per Day (ICD-10-PCS; 2020-08-25)
PROC: B41G1ZZ Fluoroscopy of Left Lower Extremity Arteries using Low Osmolar Contrast (ICD-10-PCS; principal; 2020-08-26)
PROC: B41F1ZZ Fluoroscopy of Right Lower Extremity Arteries using Low Osmolar Contrast (ICD-10-PCS; 2020-08-26)
PROC: 5A1D70Z Performance of Urinary Filtration, Intermittent, Less than 6 Hours Per Day (ICD-10-PCS; 2020-08-26)
PROC: 5A1D70Z Performance of Urinary Filtration, Intermittent, Less than 6 Hours Per Day (ICD-10-PCS; 2020-08-28)
DX: I13.2 Hypertensive heart and chronic kidney disease with heart failure and with stage 5 chronic kidney disease, or end stage renal disease (principal); J96.21 Acute and chronic respiratory failure with hypoxia; J18.9 Pneumonia, unspecified organism; I50.23 Acute on chronic systolic (congestive) heart failure; N18.6 End stage renal disease; I16.9 Hypertensive crisis, unspecified; E11.65 Type 2 diabetes mellitus with hyperglycemia; E11.51 Type 2 diabetes mellitus with diabetic peripheral angiopathy without gangrene; I25.5 Ischemic cardiomyopathy; Z20.822 Contact with and (suspected) exposure to COVID-19; D63.1 Anemia in chronic kidney disease; F32.9 Major depressive disorder, single episode, unspecified; E78.5 Hyperlipidemia, unspecified; I70.201 Unspecified atherosclerosis of native arteries of extremities, right leg; K21.9 Gastro-esophageal reflux disease without esophagitis; E11.22 Type 2 diabetes mellitus with diabetic chronic kidney disease; E78.00 Pure hypercholesterolemia, unspecified; H54.8 Legal blindness, as defined in USA; Z79.4 Long term (current) use of insulin; Z82.49 Family history of ischemic heart disease and other diseases of the circulatory system; Z86.73 Personal history of transient ischemic attack (TIA), and cerebral infarction without residual deficits; Z90.710 Acquired absence of both cervix and uterus; Z99.2 Dependence on renal dialysis; I77.1 Stricture of artery
CPT/HCPCS: 36415; 36600; 71045; 74176; 75716; 78452; 80048; 80053; 80320; 82010; 82805; 82962; 83036; 83605; 83690; 83735; 83880; 84100; 84484; 85025; 85610; 85730; 86141; 86850; 86900; 86901; 87040; 87077; 87081; 87186; 87426; 90935; 93005; 93017; 93306; 93925; 96365; 96367; 96375; 99152; C9113; G0378; J0153; J0461; J0696; J1642; J1815; J2250; J2405; Q9967

== ENCOUNTER 2020-09-19 14:56 | Inpatient (IN) | payer MEDICARE, MEDICAID ==
[~2020-09-19] VITALS: Ht 167.6 cm; Wt 58.9 kg
[~2020-09-19 14:56] MED LIST changes: +AMOX500T86 PO; +CLOP75TA28 PO
[2020-09-19] MEDS ORDERED: ONDANSETRON HCL 4 MG/2 ML VIAL IV ONE (15:45)
[2020-09-19] MEDS ORDERED: SODIUM CHLORIDE 0.9% 1,000 ML IV ONE (15:45)
[2020-09-19] MEDS ORDERED: SODIUM CHLORIDE 0.9% 500 ML IVB ONE (15:45)
[2020-09-19 15:59] LABS: Basophils # (auto) 0 10 ^3/uL (0-0.2); Basophils % (auto) 0.9 % (0.0-2.0); Eosinophils # (auto) 0 10 ^3/uL (0-0.8); Eosinophils % (auto) 0.8 % (0.0-7.0); Hematocrit 33.3 % (36.0-46.0); Lymphocytes # (auto) 0.2 10 ^3/uL (0.4-5.4); Mean Corpuscular Hgb Conc. 32.9 g/dL (32.0-36.0); Monocytes # (auto) 0.2 10 ^3/uL (0-1.3); Monocytes % (auto) 5.1 % (0.0-12.0); Neutrophils # (auto) 4.2 10 ^3/uL (1.6-8.6); Neutrophils % (auto) 89.2 % (37.0-80.0); Nucleated Red Blood Cells % 0.1 %; Platelet Count (auto) 286 10^3/uL (140-450); Red Blood Cells 3.79 10^6/uL (4.0-5.20); White Blood Cell 4.7 10^3/uL (4.4-10.8)
[2020-09-19 16:13] LABS: Albumin 2.9 g/dL (3.4-5.0); Calcium 8.4 mg/dL (8.5-10.1); Potassium 3.7 mmol/L (3.5-5.1)
[2020-09-19 16:14] LABS: Magnesium 2.4 mg/dL (1.6-2.6)
[2020-09-19] MEDS ORDERED: MORPHINE SULF INJ 2 MG/ML SYRINGE 1ML IV ONE (16:15)
[2020-09-19 16:19] LABS: BUN/Creatinine Ratio 5.5; Bilirubin, Total 0.3 mg/dL (0.2-1.0); Total Protein 6.9 g/dL (6.4-8.2)
[2020-09-19] MEDS ORDERED: FUROSEMIDE 40 MG/4 ML VIAL IV ONE (18:00)
[2020-09-19] MEDS ORDERED: MORPHINE SULF INJ 2 MG/ML SYRINGE 1ML IV PRN (18:15)
[2020-09-19] MEDS ORDERED: DEXTROSE (50%) 50ML SYRG IV PRN (18:15)
[2020-09-19] MEDS: cefTRIAXone 1GM/50ML D5W 50 ML IV SCH (19:10)
[2020-09-19] MEDS: InsuLIN REG 1unit/0.01ml Soln (100units/ml) SC SCH (22:00)
[2020-09-19] MEDS: ACCU-CHEK COMFORT CURVE STRIP VI SCH (22:00)
[2020-09-19] MEDS: CALCIUM ACETATE 667 MG CAP PO SCH (22:41)
[2020-09-19] MEDS: metroNIDAZOLE 500MG/100ML 100 ML IV SCH (22:41)
[2020-09-19] MEDS: CARVEDILOL 12.5 MG TAB PO SCH (23:20)
[2020-09-20] VITALS (7 sets, daily range): BP systolic 125–189; BP diastolic 51–99
[2020-09-20 05:57] LABS: Basophils # (auto) 0 10 ^3/uL (0-0.2); Basophils % (auto) 0.6 % (0.0-2.0); Eosinophils # (auto) 0.1 10 ^3/uL (0-0.8); Eosinophils % (auto) 1.9 % (0.0-7.0); Hematocrit 33.4 % (36.0-46.0); Lymphocytes # (auto) 0.4 10 ^3/uL (0.4-5.4); Lymphocytes % (auto) 9.9 % (10.0-50.0); Mean Corpuscular Hemoglobin 28.4 pg (28.0-32.0); Mean Corpuscular Hgb Conc. 32.8 g/dL (32.0-36.0); Mean Corpuscular Volume 86.7 fL (80.0-100.0); Monocytes # (auto) 0.4 10 ^3/uL (0-1.3); Neutrophils # (auto) 2.9 10 ^3/uL (1.6-8.6); Neutrophils % (auto) 77.6 % (37.0-80.0); Nucleated Red Blood Cells % 0.1 %; Platelet Count (auto) 288 10^3/uL (140-450); Red Blood Cells 3.86 10^6/uL (4.0-5.20); Red Cell Distribution Width 18.2 % (11.8-14.3); White Blood Cell 3.8 10^3/uL (4.4-10.8)
[2020-09-20] MEDS: metroNIDAZOLE 500MG/100ML 100 ML IV SCH ×3 (06:00→20:36)
[2020-09-20] MEDS: CALCIUM ACETATE 667 MG CAP PO SCH ×3 (06:00→20:42)
[2020-09-20] MEDS: ACCU-CHEK COMFORT CURVE STRIP VI SCH ×4 (06:00→20:42)
[2020-09-20] MEDS: InsuLIN REG 1unit/0.01ml Soln (100units/ml) SC SCH ×4 (06:15→21:03)
[2020-09-20 06:20] LABS: Albumin 2.9 g/dL (3.4-5.0); BUN/Creatinine Ratio 5.7; Calcium 9.1 mg/dL (8.5-10.1)
[2020-09-20 06:22] LABS: Bilirubin, Total 0.3 mg/dL (0.2-1.0); Total Protein 6.9 g/dL (6.4-8.2)
[2020-09-20] MEDS: ONDANSETRON HCL 4 MG/2 ML VIAL IV PRN ×4 (07:43→22:09)
[2020-09-20] MEDS: MORPHINE SULF INJ 2 MG/ML SYRINGE 1ML IV PRN ×3 (08:33→19:27)
[2020-09-20] MEDS: cefTRIAXone 1GM/50ML D5W 50 ML IV SCH (08:50)
[2020-09-20] MEDS: CARVEDILOL 12.5 MG TAB PO SCH ×2 (09:58→20:42)
[2020-09-20] MEDS: amLODIPine BESYLATE 5 MG TAB PO SCH (09:58)
[2020-09-20] MEDS: PANTOPRAZOLE 40 MG TAB PO SCH (09:59)
[2020-09-20] MEDS: SERTRALINE HCL 50 MG TAB PO SCH (09:59)
[2020-09-20] MEDS ORDERED: CLOPIDOGREL BISULFATE 75 MG TAB PO SCH (10:00)
[2020-09-20] MEDS ORDERED: OMEPRAZOLE 20MG/10ML ORAL SUSP PO SCH (10:00)
[2020-09-20] MEDS: hydrALAZINE HCL 20 MG/ML VL IV PRN ×2 (11:44→22:09)
[2020-09-20] MEDS ORDERED: hydrOXYzine 25 MG TAB or CAP PO PRN (13:00)
[2020-09-20] MEDS: diphenhdrAMINE HCL 50 MG/1 ML VL IV PRN ×2 (13:18→20:43)
[2020-09-20] MEDS: SUCRALFATE 1 GM/10 ML ORAL SUSP PO SCH ×2 (17:43→20:36)
[2020-09-20] MEDS: PRAVASTATIN SODIUM 20 MG TAB PO SCH (17:44)
[2020-09-20] MEDS: NITROGLYCERIN 0.4 MG SL TAB SL PRN ×3 (22:09→22:21)
[2020-09-20] MEDS ORDERED: TEMAZEPAM 15 MG CAP PO ONE (22:45)
[2020-09-21] MEDS ORDERED: ALPRAZolam 0.25 MG TAB PO ONE (00:30)
[2020-09-21 05:00] VITALS: BP 161/76
[2020-09-21] MEDS: ACCU-CHEK COMFORT CURVE STRIP VI SCH ×4 (06:00→21:32)
[2020-09-21] MEDS: CALCIUM ACETATE 667 MG CAP PO SCH ×3 (06:00→21:32)
[2020-09-21] MEDS: SUCRALFATE 1 GM/10 ML ORAL SUSP PO SCH ×4 (06:00→21:29)
[2020-09-21] MEDS: metroNIDAZOLE 500MG/100ML 100 ML IV SCH ×3 (06:00→21:28)
[2020-09-21] MEDS: hydrALAZINE HCL 20 MG/ML VL IV PRN ×2 (06:01→13:08)
[2020-09-21] MEDS: InsuLIN REG 1unit/0.01ml Soln (100units/ml) SC SCH ×4 (06:11→21:32)
[2020-09-21 06:57] LABS: Basophils # (auto) 0 10 ^3/uL (0-0.2); Basophils % (auto) 0.4 % (0.0-2.0); Eosinophils # (auto) 0 10 ^3/uL (0-0.8); Eosinophils % (auto) 0.1 % (0.0-7.0); Hematocrit 28.3 % (36.0-46.0); Hemoglobin 9.5 g/dL (12.2-16.2); Lymphocytes # (auto) 0.2 10 ^3/uL (0.4-5.4); Lymphocytes % (auto) 6.4 % (10.0-50.0); Mean Corpuscular Hemoglobin 29.1 pg (28.0-32.0); Mean Corpuscular Hgb Conc. 33.7 g/dL (32.0-36.0); Mean Corpuscular Volume 86.2 fL (80.0-100.0); Monocytes # (auto) 0.1 10 ^3/uL (0-1.3); Monocytes % (auto) 4.1 % (0.0-12.0); Neutrophils # (auto) 3.1 10 ^3/uL (1.6-8.6); Nucleated Red Blood Cells % 0.1 %; Platelet Count (auto) 227 10^3/uL (140-450); Red Blood Cells 3.28 10^6/uL (4.0-5.20); Red Cell Distribution Width 17.9 % (11.8-14.3); White Blood Cell 3.5 10^3/uL (4.4-10.8)
[2020-09-21] MEDS: diphenhdrAMINE HCL 50 MG/1 ML VL IV PRN (07:08)
[2020-09-21 07:11] LABS: Albumin 2.8 g/dL (3.4-5.0); Calcium 7.5 mg/dL (8.5-10.1); Potassium 3.6 mmol/L (3.5-5.1)
[2020-09-21 07:14] LABS: Bilirubin, Total 0.3 mg/dL (0.2-1.0); Total Protein 6.1 g/dL (6.4-8.2)
[2020-09-21 07:15] LABS: BUN/Creatinine Ratio 6.4
[2020-09-21 08:15] VITALS: BP 177/69
[2020-09-21] MEDS: cefTRIAXone 1GM/50ML D5W 50 ML IV SCH (09:32)
[2020-09-21] MEDS: ONDANSETRON HCL 4 MG/2 ML VIAL IV PRN ×2 (09:32→17:41)
[2020-09-21] MEDS: MORPHINE SULF INJ 2 MG/ML SYRINGE 1ML IV PRN ×3 (09:32→22:30)
[2020-09-21] MEDS: amLODIPine BESYLATE 5 MG TAB PO SCH (09:49)
[2020-09-21] MEDS: CARVEDILOL 12.5 MG TAB PO SCH ×2 (09:49→21:32)
[2020-09-21] MEDS: PANTOPRAZOLE 40 MG TAB PO SCH (09:50)
[2020-09-21] MEDS: SERTRALINE HCL 50 MG TAB PO SCH (09:50)
[2020-09-21] MEDS: hydrOXYzine 25 MG TAB or CAP PO PRN ×2 (13:00→21:33)
[2020-09-21] MEDS: PRAVASTATIN SODIUM 20 MG TAB PO SCH (17:41)
[2020-09-21 20:15] VITALS: BP 131/65
[2020-09-21 22:00] VITALS: BP 131/65
[2020-09-22] MEDS: hydrOXYzine 25 MG TAB or CAP PO PRN ×2 (05:15→18:28)
[2020-09-22] MEDS: ONDANSETRON HCL 4 MG/2 ML VIAL IV PRN (05:15)
[2020-09-22] MEDS: MORPHINE SULF INJ 2 MG/ML SYRINGE 1ML IV PRN ×2 (05:16→20:50)
[2020-09-22] MEDS: metroNIDAZOLE 500MG/100ML 100 ML IV SCH (05:54)
[2020-09-22] MEDS: SUCRALFATE 1 GM/10 ML ORAL SUSP PO SCH ×4 (05:54→21:15)
[2020-09-22] MEDS: CALCIUM ACETATE 667 MG CAP PO SCH ×3 (05:54→21:14)
[2020-09-22 06:15] VITALS: BP 177/92
[2020-09-22] MEDS: hydrALAZINE HCL 20 MG/ML VL IV PRN ×2 (06:43→20:50)
[2020-09-22 06:44] LABS: Basophils # (auto) 0 10 ^3/uL (0-0.2); Basophils % (auto) 0.1 % (0.0-2.0); Eosinophils # (auto) 0 10 ^3/uL (0-0.8); Hematocrit 30.2 % (36.0-46.0); Hemoglobin 10.3 g/dL (12.2-16.2); Lymphocytes # (auto) 0.2 10 ^3/uL (0.4-5.4); Mean Corpuscular Hgb Conc. 34.2 g/dL (32.0-36.0); Mean Corpuscular Volume 87.6 fL (80.0-100.0); Monocytes # (auto) 0.3 10 ^3/uL (0-1.3); Monocytes % (auto) 7.6 % (0.0-12.0); Neutrophils # (auto) 3.1 10 ^3/uL (1.6-8.6); Neutrophils % (auto) 85.3 % (37.0-80.0); Nucleated Red Blood Cells % 0.1 %; Platelet Count (auto) 222 10^3/uL (140-450); Red Blood Cells 3.45 10^6/uL (4.0-5.20); Red Cell Distribution Width 18.1 % (11.8-14.3); White Blood Cell 3.7 10^3/uL (4.4-10.8)
[2020-09-22] MEDS: ACCU-CHEK COMFORT CURVE STRIP VI SCH ×4 (06:49→21:16)
[2020-09-22] MEDS: InsuLIN REG 1unit/0.01ml Soln (100units/ml) SC SCH ×4 (06:51→21:18)
[2020-09-22] MEDS ORDERED: SODIUM CHL 0.9% 1000 ML BAG XX ONE (07:00)
[2020-09-22 07:33] LABS: Potassium 4.5 mmol/L (3.5-5.1)
[2020-09-22 07:45] LABS: Calcium 8.8 mg/dL (8.5-10.1)
[2020-09-22 09:00] VITALS: BP 159/92
[2020-09-22] MEDS: cefTRIAXone 1GM/50ML D5W 50 ML IV SCH (09:55)
[2020-09-22] MEDS: CARVEDILOL 12.5 MG TAB PO SCH ×2 (09:55→21:15)
[2020-09-22] MEDS: PANTOPRAZOLE 40 MG TAB PO SCH (09:56)
[2020-09-22] MEDS: SERTRALINE HCL 50 MG TAB PO SCH (09:56)
[2020-09-22] MEDS: amLODIPine BESYLATE 5 MG TAB PO SCH (09:56)
[2020-09-22 11:11] LABS: INR 1.13 (0.9-1.15); Partial Thromboplastin Time 28.2 sec (23.0-31.2)
[2020-09-22] MEDS ORDERED: LIDOCAINE VISCOUS 2% 15ML UD ONE (11:16)
[2020-09-22] MEDS ORDERED: diphenhdrAMINE HCL 50 MG/1 ML VL ONE (11:16)
[2020-09-22] MEDS ORDERED: MIDAZOLAM HCL 5 MG/ML-1ML VIAL ONE (11:16)
[2020-09-22] MEDS ORDERED: SODIUM CHLORIDE LOCK 10 ML ONE (11:16)
[2020-09-22] MEDS ORDERED: fentaNYL CITRATE 100 MCG/2 ML VL ONE (11:17)
[2020-09-22 13:00] VITALS: BP 136/55
[2020-09-22] MEDS: METOCLOPRAMIDE HCL 5MG/ml INJ 2ml VIAL IV SCH ×2 (15:08→21:15)
[2020-09-22 17:00] VITALS: BP 155/53
[2020-09-22] MEDS: PRAVASTATIN SODIUM 20 MG TAB PO SCH (18:15)
[2020-09-22] MEDS ORDERED: EPOETIN ALFA-EPBX 4,000 UNIT/ML VIAL SC ONE (21:00)
[2020-09-22] MEDS: PANTOPRAZOLE 40 MG/10 ML VIAL INJ IV SCH (21:15)
[2020-09-22 22:00] VITALS: BP 147/64
[2020-09-22 23:00] VITALS: BP 134/69
[2020-09-23] VITALS (7 sets, daily range): BP systolic 147–165; BP diastolic 75–82
[2020-09-23] MEDS: METOCLOPRAMIDE HCL 5MG/ml INJ 2ml VIAL IV SCH ×3 (05:32→21:56)
[2020-09-23] MEDS: CALCIUM ACETATE 667 MG CAP PO SCH ×3 (05:32→21:57)
[2020-09-23] MEDS: hydrOXYzine 25 MG TAB or CAP PO PRN (05:32)
[2020-09-23] MEDS: InsuLIN REG 1unit/0.01ml Soln (100units/ml) SC SCH ×4 (05:33→21:58)
[2020-09-23] MEDS: ACCU-CHEK COMFORT CURVE STRIP VI SCH ×4 (05:33→21:57)
[2020-09-23] MEDS: SUCRALFATE 1 GM/10 ML ORAL SUSP PO SCH ×4 (05:34→21:56)
[2020-09-23 06:14] LABS: Basophils # (auto) 0 10 ^3/uL (0-0.2); Basophils % (auto) 0.4 % (0.0-2.0); Eosinophils # (auto) 0.1 10 ^3/uL (0-0.8); Eosinophils % (auto) 1.1 % (0.0-7.0); Hematocrit 29.8 % (36.0-46.0); Hemoglobin 9.8 g/dL (12.2-16.2); Lymphocytes # (auto) 0.4 10 ^3/uL (0.4-5.4); Mean Corpuscular Hemoglobin 28.9 pg (28.0-32.0); Mean Corpuscular Volume 87.4 fL (80.0-100.0); Monocytes # (auto) 0.3 10 ^3/uL (0-1.3); Monocytes % (auto) 4.9 % (0.0-12.0); Neutrophils # (auto) 5.4 10 ^3/uL (1.6-8.6); Neutrophils % (auto) 87.6 % (37.0-80.0); Platelet Count (auto) 223 10^3/uL (140-450); Red Blood Cells 3.41 10^6/uL (4.0-5.20); Red Cell Distribution Width 18.5 % (11.8-14.3); White Blood Cell 6.1 10^3/uL (4.4-10.8)
[2020-09-23 06:48] LABS: Calcium 8.4 mg/dL (8.5-10.1)
[2020-09-23] MEDS ORDERED: GASTROGRAFIN 120 ML SOL ONE (09:48)
[2020-09-23] MEDS ORDERED: diphenhdrAMINE HCL 50 MG/1 ML VL IV PRN (11:30)
[2020-09-23] MEDS: diphenhdrAMINE HCL 50 MG/1 ML VL IV PRN ×2 (11:48→21:58)
[2020-09-23] MEDS: PANTOPRAZOLE 40 MG/10 ML VIAL INJ IV SCH ×2 (11:48→21:56)
[2020-09-23] MEDS: amLODIPine BESYLATE 5 MG TAB PO SCH (13:27)
[2020-09-23] MEDS: SERTRALINE HCL 50 MG TAB PO SCH (13:28)
[2020-09-23] MEDS: CARVEDILOL 12.5 MG TAB PO SCH ×2 (13:28→21:57)
[2020-09-23] MEDS ORDERED: NIFE90TA49 PO (13:29)
[2020-09-23] MEDS ORDERED: SEMA2INJ SC (13:29)
[2020-09-23] MEDS ORDERED: CHOL20002 PO (13:29)
[2020-09-23] MEDS ORDERED: DORZ1SOL2 EACHEYE (13:29)
[2020-09-23] MEDS ORDERED: LEVEMIR SC (13:29)
[2020-09-23] MEDS ORDERED: LATA0.0019 EACHEYE (13:29)
[2020-09-23] MEDS ORDERED: INSU1INJ5 SC (13:55)
[2020-09-23] MEDS ORDERED: DORZ1SOL6 EACHEYE (13:55)
[2020-09-23] MEDS: PRAVASTATIN SODIUM 20 MG TAB PO SCH (18:36)
[2020-09-24 05:36] VITALS: BP 142/58
[2020-09-24 06:07] LABS: Basophils # (auto) 0 10 ^3/uL (0-0.2); Basophils % (auto) 0.6 % (0.0-2.0); Eosinophils # (auto) 0.1 10 ^3/uL (0-0.8); Eosinophils % (auto) 3.3 % (0.0-7.0); Hematocrit 29.6 % (36.0-46.0); Hemoglobin 9.9 g/dL (12.2-16.2); Lymphocytes # (auto) 0.3 10 ^3/uL (0.4-5.4); Lymphocytes % (auto) 8.2 % (10.0-50.0); Mean Corpuscular Hemoglobin 29.3 pg (28.0-32.0); Mean Corpuscular Hgb Conc. 33.6 g/dL (32.0-36.0); Mean Corpuscular Volume 87.4 fL (80.0-100.0); Monocytes # (auto) 0.4 10 ^3/uL (0-1.3); Neutrophils # (auto) 3.1 10 ^3/uL (1.6-8.6); Neutrophils % (auto) 77.9 % (37.0-80.0); Nucleated Red Blood Cells % 0.1 %; Platelet Count (auto) 190 10^3/uL (140-450); Red Blood Cells 3.38 10^6/uL (4.0-5.20); Red Cell Distribution Width 18.2 % (11.8-14.3)
[2020-09-24] MEDS: SUCRALFATE 1 GM/10 ML ORAL SUSP PO SCH ×4 (06:15→22:11)
[2020-09-24] MEDS: METOCLOPRAMIDE HCL 5MG/ml INJ 2ml VIAL IV SCH ×3 (06:15→22:11)
[2020-09-24] MEDS: CALCIUM ACETATE 667 MG CAP PO SCH ×3 (06:15→22:11)
[2020-09-24] MEDS: ACCU-CHEK COMFORT CURVE STRIP VI SCH ×4 (06:33→21:34)
[2020-09-24] MEDS: InsuLIN REG 1unit/0.01ml Soln (100units/ml) SC SCH ×4 (06:33→21:34)
[2020-09-24 06:35] LABS: Potassium 3.8 mmol/L (3.5-5.1)
[2020-09-24 06:42] LABS: Calcium 8.9 mg/dL (8.5-10.1)
[2020-09-24 08:00] VITALS: BP 181/71
[2020-09-24 08:30] VITALS: BP 171/71
[2020-09-24] MEDS: diphenhdrAMINE HCL 50 MG/1 ML VL IV PRN ×2 (10:11→18:29)
[2020-09-24] MEDS: PANTOPRAZOLE 40 MG/10 ML VIAL INJ IV SCH ×2 (10:14→22:10)
[2020-09-24] MEDS: amLODIPine BESYLATE 5 MG TAB PO SCH (10:14)
[2020-09-24] MEDS: SERTRALINE HCL 50 MG TAB PO SCH (10:14)
[2020-09-24] MEDS: CARVEDILOL 12.5 MG TAB PO SCH ×2 (10:14→22:11)
[2020-09-24] MEDS ORDERED: PANT40TA2 PO (11:14)
[2020-09-24] MEDS ORDERED: SUCR1SUS10 PO (11:14)
[2020-09-24] MEDS ORDERED: SODIUM CHL 0.9% 1000 ML BAG XX ONE (12:15)
[2020-09-24 12:30] VITALS: BP 146/79
[2020-09-24 15:56] LABS: Hepatitis A Ab IgM Negative; Hepatitis B Core IgM Negative; Hepatitis B Surface Antigen Negative (Negative)
[2020-09-24 17:00] VITALS: BP 158/76
[2020-09-24] MEDS: PRAVASTATIN SODIUM 20 MG TAB PO SCH (18:29)
[2020-09-24 22:00] VITALS: BP 145/53
[2020-09-25 05:00] VITALS: BP 173/79
[2020-09-25] MEDS: hydrALAZINE HCL 20 MG/ML VL IV PRN (05:02)
[2020-09-25] MEDS: ACCU-CHEK COMFORT CURVE STRIP VI SCH ×3 (06:55→17:00)
[2020-09-25] MEDS: METOCLOPRAMIDE HCL 5MG/ml INJ 2ml VIAL IV SCH ×2 (06:55→13:30)
[2020-09-25] MEDS: CALCIUM ACETATE 667 MG CAP PO SCH ×2 (06:55→14:00)
[2020-09-25] MEDS: SUCRALFATE 1 GM/10 ML ORAL SUSP PO SCH ×3 (06:55→17:15)
[2020-09-25] MEDS: InsuLIN REG 1unit/0.01ml Soln (100units/ml) SC SCH ×3 (06:56→17:00)
[2020-09-25 09:00] VITALS: BP 131/63
[2020-09-25] MEDS: CARVEDILOL 12.5 MG TAB PO SCH (09:28)
[2020-09-25] MEDS: PANTOPRAZOLE 40 MG/10 ML VIAL INJ IV SCH (09:28)
[2020-09-25] MEDS: amLODIPine BESYLATE 5 MG TAB PO SCH (09:29)
[2020-09-25] MEDS: SERTRALINE HCL 50 MG TAB PO SCH (09:29)
[2020-09-25 12:43] VITALS: BP 159/82
[2020-09-25 16:49] VITALS: BP 160/80
[2020-09-25] MEDS: diphenhdrAMINE HCL 50 MG/1 ML VL IV PRN (17:30)
[2020-09-25] MEDS: PRAVASTATIN SODIUM 20 MG TAB PO SCH (17:52)
[2020-09-25] MEDS: hydrOXYzine 25 MG TAB or CAP PO PRN (17:54)
[2020-09-26] MEDS ORDERED: SODIUM CHL 0.9% 1000 ML BAG XX ONE (07:00)
[2020-09-26] MEDS ORDERED: EPOETIN ALFA-EPBX 4,000 UNIT/ML VIAL SC ONE (21:00)
[2020-09-28 13:51] LABS: Hepatitis C Antibody Negative (Negative)
== END 2020-09-25 20:48 | disposition home or self-care (01) | DRG 388 ==
LOC: EDBD 14:56 → ER 14:56 → TELE-WESTW 18:06
PROVIDERS: ADMIT Nurse Practitioner Acute Care; ATTEND Internal Medicine Pulmonary Disease
PROC: 0DB68ZX Excision of Stomach, Via Natural or Artificial Opening Endoscopic, Diagnostic (ICD-10-PCS; 2020-09-22)
PROC: 0DB58ZX Excision of Esophagus, Via Natural or Artificial Opening Endoscopic, Diagnostic (ICD-10-PCS; 2020-09-22)
PROC: 5A1D70Z Performance of Urinary Filtration, Intermittent, Less than 6 Hours Per Day (ICD-10-PCS; 2020-09-22)
PROC: 0DB98ZX Excision of Duodenum, Via Natural or Artificial Opening Endoscopic, Diagnostic (ICD-10-PCS; principal; 2020-09-22 12:20)
DX: K56.600 Partial intestinal obstruction, unspecified as to cause (principal); N18.6 End stage renal disease; J18.9 Pneumonia, unspecified organism; J96.01 Acute respiratory failure with hypoxia; I50.23 Acute on chronic systolic (congestive) heart failure; I13.2 Hypertensive heart and chronic kidney disease with heart failure and with stage 5 chronic kidney disease, or end stage renal disease; J90 Pleural effusion, not elsewhere classified; E44.0 Moderate protein-calorie malnutrition; K22.10 Ulcer of esophagus without bleeding; J91.8 Pleural effusion in other conditions classified elsewhere; E11.21 Type 2 diabetes mellitus with diabetic nephropathy; R16.0 Hepatomegaly, not elsewhere classified; E11.65 Type 2 diabetes mellitus with hyperglycemia; R60.1 Generalized edema; K29.70 Gastritis, unspecified, without bleeding; K29.80 Duodenitis without bleeding; Z20.822 Contact with and (suspected) exposure to COVID-19; D63.1 Anemia in chronic kidney disease; E11.22 Type 2 diabetes mellitus with diabetic chronic kidney disease; E11.43 Type 2 diabetes mellitus with diabetic autonomic (poly)neuropathy; E11.51 Type 2 diabetes mellitus with diabetic peripheral angiopathy without gangrene; E78.00 Pure hypercholesterolemia, unspecified; E78.5 Hyperlipidemia, unspecified; E86.0 Dehydration; I25.10 Atherosclerotic heart disease of native coronary artery without angina pectoris; K29.90 Gastroduodenitis, unspecified, without bleeding; K44.9 Diaphragmatic hernia without obstruction or gangrene; Z79.02 Long term (current) use of antithrombotics/antiplatelets; Z80.1 Family history of malignant neoplasm of trachea, bronchus and lung; Z79.899 Other long term (current) drug therapy; Z82.49 Family history of ischemic heart disease and other diseases of the circulatory system; Z86.73 Personal history of transient ischemic attack (TIA), and cerebral infarction without residual deficits; Z90.710 Acquired absence of both cervix and uterus; Z99.2 Dependence on renal dialysis; Z68.21 Body mass index [BMI] 21.0-21.9, adult
CPT/HCPCS: 36415; 36600; 43239; 71045; 74176; 74250; 76700; 80048; 80053; 80074; 82805; 82962; 83690; 83735; 84443; 84484; 85025; 85049; 85610; 85730; 86850; 86900; 86901; 87081; 87426; 90935; 93005; 96361; 96365; 96375; C9113; G0378; J0696; J1815; J2250; J2405; J3490

== ENCOUNTER 2020-09-27 09:19 | Inpatient (IN) | payer MEDICARE, MEDICAID ==
[~2020-09-27] VITALS: Ht 167.6 cm; Wt 63.5 kg
[~2020-09-27 09:19] MED LIST changes: -AMLO-496 PO; -AMOX500T86 PO; +CHOL20002 PO; +DORZ1SOL6 EACHEYE; +INSU1INJ5 SC; +LATA0.0019 EACHEYE; +NIFE90TA49 PO; -OME20T PO; +PANT40TA2 PO; +SEMA2INJ SC; +SUCR1SUS10 PO
[2020-09-27 10:03] LABS: Basophils # (auto) 0.1 10 ^3/uL (0-0.2); Basophils % (auto) 1.2 % (0.0-2.0); Eosinophils # (auto) 0.1 10 ^3/uL (0-0.8); Eosinophils % (auto) 2.9 % (0.0-7.0); Hematocrit 33.3 % (36.0-46.0); Hemoglobin 11.3 g/dL (12.2-16.2); Lymphocytes # (auto) 0.2 10 ^3/uL (0.4-5.4); Lymphocytes % (auto) 5.1 % (10.0-50.0); Mean Corpuscular Hemoglobin 29.2 pg (28.0-32.0); Mean Corpuscular Hgb Conc. 33.8 g/dL (32.0-36.0); Mean Corpuscular Volume 86.3 fL (80.0-100.0); Monocytes # (auto) 0.3 10 ^3/uL (0-1.3); Monocytes % (auto) 6.2 % (0.0-12.0); Neutrophils # (auto) 3.4 10 ^3/uL (1.6-8.6); Neutrophils % (auto) 84.6 % (37.0-80.0); Nucleated Red Blood Cells % 0.1 %; Red Blood Cells 3.85 10^6/uL (4.0-5.20); Red Cell Distribution Width 17.2 % (11.8-14.3)
[2020-09-27 10:19] LABS: Albumin 3.4 g/dL (3.4-5.0); Calcium 9.2 mg/dL (8.5-10.1); Potassium 4.4 mmol/L (3.5-5.1)
[2020-09-27 10:26] LABS: BUN/Creatinine Ratio 4.9; Bilirubin, Total 0.4 mg/dL (0.2-1.0); Total Protein 7.2 g/dL (6.4-8.2)
[2020-09-27] MEDS ORDERED: HYDROmorphone HCL 2 MG/ML VL IV ONE ×2 (10:30→11:45)
[2020-09-27] MEDS: SODIUM CHLORIDE 0.9% 500 ML IVB ONE ×2 (10:30→11:19)
[2020-09-27] MEDS ORDERED: SODIUM CHLORIDE 0.9% 1,000 ML IV ONE (10:30)
[2020-09-27] MEDS ORDERED: PROMETHAZINE HCL 25 MG/ML 1ML IV PRN (10:30)
[2020-09-27 11:11] LABS: INR 1.08 (0.9-1.15); Partial Thromboplastin Time 27.4 sec (23.0-31.2)
[2020-09-27] MEDS ORDERED: FUROSEMIDE 40 MG/4 ML VIAL IV ONE (11:15)
[2020-09-27] MEDS ORDERED: cefTRIAXone 1GM/50ML D5W 50 ML IV ONE ×2 (11:15→12:15)
[2020-09-27 11:36] LABS: Magnesium 2.6 mg/dL (1.6-2.6)
[2020-09-27] MEDS ORDERED: MORPHINE SULF INJ 2 MG/ML SYRINGE 1ML IV PRN ×2 (11:45→17:00)
[2020-09-27] MEDS ORDERED: NITROGLYCERIN 0.4 MG SL TAB SL PRN (11:45)
[2020-09-27] MEDS ORDERED: traMADol HCL 50 MG TAB PO PRN (12:15)
[2020-09-27] MEDS ORDERED: ACETAMINOPHEN 500 MG TAB PO PRN (12:15)
[2020-09-27] MEDS ORDERED: PANTOPRAZOLE 40 MG/10 ML VIAL INJ IV ONE (12:15)
[2020-09-27] MEDS ORDERED: DEXTROSE (50%) 50ML SYRG IV PRN (12:15)
[2020-09-27] MEDS ORDERED: TEMAZEPAM 15 MG CAP PO PRN (12:15)
[2020-09-27] MEDS ORDERED: ALBUTEROL SULF 2.5 MG/0.5ML(0.5%) NEB SOLN NEB PRN (12:15)
[2020-09-27] MEDS ORDERED: LACTULOSE 20Gm/30ML SOLN PO PRN (12:15)
[2020-09-27] MEDS: AZITHROMYCIN 500MG/ 250ML 250 ML IV SCH (13:35)
[2020-09-27] MEDS: ONDANSETRON HCL 4 MG/2 ML VIAL IV PRN ×2 (13:49→18:50)
[2020-09-27 16:40] VITALS: BP 122/41
[2020-09-27] MEDS: ACCU-CHEK COMFORT CURVE STRIP VI SCH ×2 (16:51→21:03)
[2020-09-27] MEDS: SUCRALFATE 1 GM/10 ML ORAL SUSP PO SCH ×2 (16:58→21:02)
[2020-09-27] MEDS: InsuLIN REG 1unit/0.01ml Soln (100units/ml) SC SCH ×2 (16:59→21:56)
[2020-09-27 17:07] VITALS: BP 108/43
[2020-09-27] MEDS: PANTOPRAZOLE 40 MG TAB PO SCH (21:02)
[2020-09-27] MEDS: MORPHINE SULF INJ 2 MG/ML SYRINGE 1ML IV PRN (21:53)
[2020-09-27 22:00] VITALS: BP 142/56
[2020-09-28 05:00] VITALS: BP 163/77
[2020-09-28] MEDS: SUCRALFATE 1 GM/10 ML ORAL SUSP PO SCH ×4 (06:47→21:55)
[2020-09-28] MEDS: ACCU-CHEK COMFORT CURVE STRIP VI SCH ×4 (06:47→21:55)
[2020-09-28] MEDS: InsuLIN REG 1unit/0.01ml Soln (100units/ml) SC SCH ×4 (06:52→21:55)
[2020-09-28 06:55] LABS: Basophils # (auto) 0 10 ^3/uL (0-0.2); Basophils % (auto) 0.5 % (0.0-2.0); Eosinophils # (auto) 0.2 10 ^3/uL (0-0.8); Eosinophils % (auto) 3.7 % (0.0-7.0); Hematocrit 32.1 % (36.0-46.0); Hemoglobin 10.7 g/dL (12.2-16.2); Lymphocytes # (auto) 0.3 10 ^3/uL (0.4-5.4); Lymphocytes % (auto) 5.3 % (10.0-50.0); Mean Corpuscular Hemoglobin 28.7 pg (28.0-32.0); Mean Corpuscular Hgb Conc. 33.2 g/dL (32.0-36.0); Mean Corpuscular Volume 86.5 fL (80.0-100.0); Monocytes # (auto) 0.5 10 ^3/uL (0-1.3); Monocytes % (auto) 7.1 % (0.0-12.0); Neutrophils # (auto) 5.4 10 ^3/uL (1.6-8.6); Neutrophils % (auto) 83.4 % (37.0-80.0); Red Blood Cells 3.71 10^6/uL (4.0-5.20); Red Cell Distribution Width 17.1 % (11.8-14.3); White Blood Cell 6.5 10^3/uL (4.4-10.8)
[2020-09-28 07:12] LABS: Calcium 8.7 mg/dL (8.5-10.1); Potassium 3.9 mmol/L (3.5-5.1)
[2020-09-28 07:15] LABS: BUN/Creatinine Ratio 5.5; Bilirubin, Total 0.4 mg/dL (0.2-1.0); Phosphorus 1.9 mg/dL (2.5-4.90); Total Protein 6.8 g/dL (6.4-8.2)
[2020-09-28 09:00] VITALS: BP 165/72
[2020-09-28] MEDS: cefTRIAXone 1GM/50ML D5W 50 ML IV SCH (09:30)
[2020-09-28] MEDS: AZITHROMYCIN 500MG/ 250ML 250 ML IV SCH (09:31)
[2020-09-28] MEDS: PANTOPRAZOLE 40 MG TAB PO SCH ×2 (09:31→21:55)
[2020-09-28] MEDS: ENOXAPARIN SOD 30 MG/0.3 ML SYRINGE SC SCH (09:31)
[2020-09-28] MEDS ORDERED: PANTOPRAZOLE 40 MG TAB PO SCH (10:00)
[2020-09-28] MEDS ORDERED: CARVEDILOL 12.5 MG TAB PO ONE (12:30)
[2020-09-28 13:00] VITALS: BP 155/72
[2020-09-28 17:25] VITALS: BP 140/60
[2020-09-28] MEDS: CARVEDILOL 12.5 MG TAB PO SCH (21:55)
[2020-09-28 22:00] VITALS: BP 155/86
[2020-09-29 05:00] VITALS: BP 160/88
[2020-09-29 06:26] LABS: Potassium 4.5 mmol/L (3.5-5.1)
[2020-09-29 06:30] LABS: BUN/Creatinine Ratio 5.3; Calcium 8.8 mg/dL (8.5-10.1)
[2020-09-29] MEDS: ACCU-CHEK COMFORT CURVE STRIP VI SCH ×4 (06:44→21:18)
[2020-09-29] MEDS: InsuLIN REG 1unit/0.01ml Soln (100units/ml) SC SCH ×4 (06:44→21:18)
[2020-09-29] MEDS: SUCRALFATE 1 GM/10 ML ORAL SUSP PO SCH ×4 (06:44→21:18)
[2020-09-29] MEDS: cefTRIAXone 1GM/50ML D5W 50 ML IV SCH (08:25)
[2020-09-29 09:00] VITALS: BP 172/82
[2020-09-29] MEDS: PANTOPRAZOLE 40 MG TAB PO SCH ×2 (11:16→21:18)
[2020-09-29] MEDS: CARVEDILOL 12.5 MG TAB PO SCH ×2 (11:16→21:18)
[2020-09-29] MEDS: ENOXAPARIN SOD 30 MG/0.3 ML SYRINGE SC SCH (11:16)
[2020-09-29] MEDS: NIFEdipine ER 30 MG TAB PO SCH (11:17)
[2020-09-29 13:00] VITALS: BP 184/88
[2020-09-29] MEDS ORDERED: PIPERACILLIN-TAZOB 2.25GM 50 ML IV ONE (13:30)
[2020-09-29 17:00] VITALS: BP 149/76
[2020-09-29] MEDS: MORPHINE SULF INJ 2 MG/ML SYRINGE 1ML IV PRN (18:46)
[2020-09-29] MEDS ORDERED: diphenhdrAMINE HCL 25 MG CAP PO ONE (21:00)
[2020-09-29] MEDS: PIPERACILLIN-TAZOB 2.25GM 50 ML IV SCH (21:18)
[2020-09-29 21:43] VITALS: BP 107/50
[2020-09-30] MEDS: PIPERACILLIN-TAZOB 2.25GM 50 ML IV SCH ×2 (05:37→14:00)
[2020-09-30 05:47] VITALS: BP 143/68
[2020-09-30 06:01] VITALS: BP 143/68
[2020-09-30] MEDS: ACCU-CHEK COMFORT CURVE STRIP VI SCH ×3 (06:26→17:00)
[2020-09-30] MEDS: SUCRALFATE 1 GM/10 ML ORAL SUSP PO SCH ×3 (06:26→17:00)
[2020-09-30] MEDS: InsuLIN REG 1unit/0.01ml Soln (100units/ml) SC SCH ×3 (06:36→17:00)
[2020-09-30 06:55] LABS: Basophils # (auto) 0 10 ^3/uL (0-0.2); Basophils % (auto) 0.8 % (0.0-2.0); Eosinophils # (auto) 0.2 10 ^3/uL (0-0.8); Eosinophils % (auto) 4.2 % (0.0-7.0); Hematocrit 30.8 % (36.0-46.0); Hemoglobin 10.1 g/dL (12.2-16.2); Lymphocytes # (auto) 0.7 10 ^3/uL (0.4-5.4); Lymphocytes % (auto) 14.3 % (10.0-50.0); Mean Corpuscular Hemoglobin 28.7 pg (28.0-32.0); Mean Corpuscular Hgb Conc. 32.6 g/dL (32.0-36.0); Monocytes # (auto) 0.6 10 ^3/uL (0-1.3); Monocytes % (auto) 11.1 % (0.0-12.0); Neutrophils # (auto) 3.5 10 ^3/uL (1.6-8.6); Neutrophils % (auto) 69.6 % (37.0-80.0); Red Cell Distribution Width 17.4 % (11.8-14.3); White Blood Cell 5.1 10^3/uL (4.4-10.8)
[2020-09-30 07:54] LABS: Potassium 4.7 mmol/L (3.5-5.1)
[2020-09-30 08:02] LABS: Calcium 8.9 mg/dL (8.5-10.1)
[2020-09-30 09:00] VITALS: BP 143/73
[2020-09-30] MEDS ORDERED: HEPARIN SODIUM (PORCINE) 5000 UNITS/ML 1ML VIAL SC SCH (10:00)
[2020-09-30] MEDS: PANTOPRAZOLE 40 MG TAB PO SCH (10:00)
[2020-09-30] MEDS: NIFEdipine ER 30 MG TAB PO SCH (10:11)
[2020-09-30] MEDS: CARVEDILOL 12.5 MG TAB PO SCH (10:12)
[2020-09-30] MEDS ORDERED: AMOX500T86 PO (11:36)
[2020-09-30] MEDS ORDERED: SODIUM CHL 0.9% 1000 ML BAG XX ONE (12:00)
[2020-09-30] MEDS ORDERED: diphenhdrAMINE HCL 50 MG/1 ML VL IV ONE ×2 (14:00→14:15)
[2020-09-30 17:00] VITALS: BP 153/68
== END 2020-09-30 19:10 | disposition home or self-care (01) | DRG 73 ==
LOC: ER 09:19 → EDBD 09:19 → TELE 11:44 → TELE-EAST 15:29
PROVIDERS: ADMIT Internal Medicine; ATTEND Internal Medicine Pulmonary Disease
PROC: 5A1D70Z Performance of Urinary Filtration, Intermittent, Less than 6 Hours Per Day (ICD-10-PCS; principal; 2020-09-30)
DX: E11.43 Type 2 diabetes mellitus with diabetic autonomic (poly)neuropathy (principal); J69.0 Pneumonitis due to inhalation of food and vomit; N18.6 End stage renal disease; I50.43 Acute on chronic combined systolic (congestive) and diastolic (congestive) heart failure; J96.21 Acute and chronic respiratory failure with hypoxia; J91.8 Pleural effusion in other conditions classified elsewhere; I13.2 Hypertensive heart and chronic kidney disease with heart failure and with stage 5 chronic kidney disease, or end stage renal disease; K29.70 Gastritis, unspecified, without bleeding; K52.9 Noninfective gastroenteritis and colitis, unspecified; E11.65 Type 2 diabetes mellitus with hyperglycemia; D63.8 Anemia in other chronic diseases classified elsewhere; K21.9 Gastro-esophageal reflux disease without esophagitis; K31.84 Gastroparesis; E11.319 Type 2 diabetes mellitus with unspecified diabetic retinopathy without macular edema; E11.51 Type 2 diabetes mellitus with diabetic peripheral angiopathy without gangrene; H54.8 Legal blindness, as defined in USA; F32.9 Major depressive disorder, single episode, unspecified; E78.5 Hyperlipidemia, unspecified; Z99.2 Dependence on renal dialysis; E11.22 Type 2 diabetes mellitus with diabetic chronic kidney disease; Z82.49 Family history of ischemic heart disease and other diseases of the circulatory system; Z83.3 Family history of diabetes mellitus; Z86.73 Personal history of transient ischemic attack (TIA), and cerebral infarction without residual deficits; Z90.710 Acquired absence of both cervix and uterus; E11.40 Type 2 diabetes mellitus with diabetic neuropathy, unspecified; Z20.822 Contact with and (suspected) exposure to COVID-19
CPT/HCPCS: 36415; 71045; 74176; 80048; 80053; 82550; 82962; 83036; 83605; 83690; 83735; 84100; 84443; 84484; 85025; 85049; 85610; 85730; 87040; 87081; 87426; 87493; 93005; 93971; 96365; 96375; 97163; C9113; G0378; J0696; J1815; J2405; J2543

== ENCOUNTER 2020-11-16 04:15 | Inpatient (IN) | payer MEDICARE, MEDICAID ==
[~2020-11-16] VITALS: Ht 157.5 cm; Wt 52.6 kg
[~2020-11-16 04:15] MED LIST changes: +AMOX500T86 PO
[2020-11-16 07:31] LABS: Basophils # (auto) 0 10 ^3/uL (0-0.2); Basophils % (auto) 0.5 % (0.0-2.0); Eosinophils # (auto) 0.1 10 ^3/uL (0-0.8); Eosinophils % (auto) 1.4 % (0.0-7.0); Hematocrit 36.1 % (36.0-46.0); Hemoglobin 11.9 g/dL (12.2-16.2); Lymphocytes # (auto) 0.6 10 ^3/uL (0.4-5.4); Lymphocytes % (auto) 14.7 % (10.0-50.0); Mean Corpuscular Hemoglobin 28.3 pg (28.0-32.0); Mean Corpuscular Volume 85.6 fL (80.0-100.0); Monocytes # (auto) 0.2 10 ^3/uL (0-1.3); Neutrophils # (auto) 3.2 10 ^3/uL (1.6-8.6); Neutrophils % (auto) 78.4 % (37.0-80.0); Nucleated Red Blood Cells % 0.2 %; Red Blood Cells 4.21 10^6/uL (4.0-5.20); Red Cell Distribution Width 16.6 % (11.8-14.3); White Blood Cell 4.1 10^3/uL (4.4-10.8)
[2020-11-16 07:43] LABS: Albumin 3.3 g/dL (3.4-5.0); Calcium 10.6 mg/dL (8.5-10.1); Potassium 3.8 mmol/L (3.5-5.1)
[2020-11-16 07:50] LABS: BUN/Creatinine Ratio 5.8; Bilirubin, Total 0.4 mg/dL (0.2-1.0); Total Protein 7.8 g/dL (6.4-8.2)
[2020-11-16] MEDS ORDERED: LIDOCAINE VISCOUS 2% 15ML UD PO ONE (09:45)
[2020-11-16] MEDS ORDERED: DONNATAL 5ml ORAL Elix (BELLADONNA ALK-PHENOBARB) PO ONE (09:45)
[2020-11-16] MEDS ORDERED: ONDANSETRON ODT 4 MG TAB PO ONE (09:45)
[2020-11-16] MEDS ORDERED: ALUM & MAG HYDROX-SIMETH LIQ(MAALOX) 30 ML PO ONE (09:45)
[2020-11-16] MEDS ORDERED: NITROGLYCERIN 0.4 MG SL TAB SL PRN (12:45)
[2020-11-16] MEDS ORDERED: MORPHINE SULFATE INJECTION 2 MG/ML SYRG IV PRN ×2 (12:45→13:45)
[2020-11-16] MEDS ORDERED: traMADol HCL 50 MG TAB PO PRN (13:45)
[2020-11-16] MEDS ORDERED: cefTRIAXone 1GM/50ML D5W 50 ML IV ONE (13:45)
[2020-11-16] MEDS ORDERED: ACETAMINOPHEN 500 MG TAB PO PRN (13:45)
[2020-11-16] MEDS ORDERED: DEXTROSE (50%) 50ML SYRG IV PRN (13:45)
[2020-11-16] MEDS ORDERED: TEMAZEPAM 15 MG CAP PO PRN (13:45)
[2020-11-16 14:12] LABS: CRP High Sensitivity 0.13 mg/dL (< 0.3)
[2020-11-16] MEDS: metroNIDAZOLE 500MG/100ML 100 ML IV SCH ×2 (14:16→23:10)
[2020-11-16] MEDS: ACCU-CHEK COMFORT CURVE STRIP VI SCH ×2 (17:53→22:00)
[2020-11-16] MEDS: InsuLIN REG 1unit/0.01ml Soln (100units/ml) SC SCH ×2 (17:55→23:10)
[2020-11-16] MEDS ORDERED: LABETALOL HCL 5 MG/ML 4ML SYRINGE IV ONE ×2 (22:19→22:30)
[2020-11-17] MEDS: ONDANSETRON HCL 4 MG/2 ML VIAL IV PRN ×2 (05:00→09:47)
[2020-11-17] MEDS: metroNIDAZOLE 500MG/100ML 100 ML IV SCH ×2 (06:50→15:36)
[2020-11-17] MEDS: ACCU-CHEK COMFORT CURVE STRIP VI SCH ×2 (07:28→11:30)
[2020-11-17] MEDS: InsuLIN REG 1unit/0.01ml Soln (100units/ml) SC SCH ×2 (08:08→11:30)
[2020-11-17] MEDS ORDERED: cefTRIAXone 1GM/50ML D5W 50 ML IV SCH (09:00)
[2020-11-17 09:47] LABS: Basophils # (auto) 0 10 ^3/uL (0-0.2); Basophils % (auto) 0.7 % (0.0-2.0); Eosinophils # (auto) 0 10 ^3/uL (0-0.8); Eosinophils % (auto) 0.7 % (0.0-7.0); Hemoglobin 11.4 g/dL (12.2-16.2); Lymphocytes # (auto) 0.5 10 ^3/uL (0.4-5.4); Lymphocytes % (auto) 9.6 % (10.0-50.0); Mean Corpuscular Hemoglobin 28.1 pg (28.0-32.0); Mean Corpuscular Hgb Conc. 32.6 g/dL (32.0-36.0); Mean Corpuscular Volume 86.2 fL (80.0-100.0); Monocytes # (auto) 0.2 10 ^3/uL (0-1.3); Monocytes % (auto) 4.3 % (0.0-12.0); Neutrophils # (auto) 4.6 10 ^3/uL (1.6-8.6); Neutrophils % (auto) 84.7 % (37.0-80.0); Nucleated Red Blood Cells % 0.2 %; Red Blood Cells 4.06 10^6/uL (4.0-5.20); Red Cell Distribution Width 16.9 % (11.8-14.3); White Blood Cell 5.5 10^3/uL (4.4-10.8)
[2020-11-17] MEDS ORDERED: PANTOPRAZOLE 40 MG TAB PO SCH (10:00)
[2020-11-17 10:06] LABS: Albumin 3.3 g/dL (3.4-5.0); Calcium 10.3 mg/dL (8.5-10.1)
[2020-11-17 10:09] LABS: BUN/Creatinine Ratio 5.9; Bilirubin, Total 0.5 mg/dL (0.2-1.0); Total Protein 7.6 g/dL (6.4-8.2)
[2020-11-17 11:00] VITALS: BP 148/86
[2020-11-17] MEDS ORDERED: LORazepam 2MG/ML-1ML VIAL IV ONE (12:00)
[2020-11-17] MEDS ORDERED: DOCUSATE SOD 100 MG CAP PO ONE (12:30)
[2020-11-17] MEDS ORDERED: LACTULOSE 20Gm/30ML SOLN PO SCH (12:39)
[2020-11-17] MEDS ORDERED: DOCUSATE SOD 100 MG CAP PO SCH (22:00)
== END 2020-11-17 16:31 | disposition left against medical advice (07) | DRG 388 ==
LOC: ER 04:15 → TELE 12:43
PROVIDERS: ADMIT Internal Medicine; ATTEND Internal Medicine
DX: K56.41 Fecal impaction (principal); N18.6 End stage renal disease; I12.0 Hypertensive chronic kidney disease with stage 5 chronic kidney disease or end stage renal disease; K29.70 Gastritis, unspecified, without bleeding; K52.9 Noninfective gastroenteritis and colitis, unspecified; Z20.822 Contact with and (suspected) exposure to COVID-19; E11.22 Type 2 diabetes mellitus with diabetic chronic kidney disease; F32.9 Major depressive disorder, single episode, unspecified; E78.5 Hyperlipidemia, unspecified; E11.51 Type 2 diabetes mellitus with diabetic peripheral angiopathy without gangrene; Z53.29 Procedure and treatment not carried out because of patient's decision for other reasons; K21.9 Gastro-esophageal reflux disease without esophagitis; Z91.041 Radiographic dye allergy status; Z90.710 Acquired absence of both cervix and uterus; Z82.49 Family history of ischemic heart disease and other diseases of the circulatory system; Z80.1 Family history of malignant neoplasm of trachea, bronchus and lung; Z99.2 Dependence on renal dialysis; Z91.15 Patient's noncompliance with renal dialysis
CPT/HCPCS: 36415; 74176; 80053; 82150; 82962; 83036; 83690; 85025; 85652; 86141; 87426; 96365; 96366; 96367; 96372; 96375; G0378; J0696; J2405; J3490; Q0162

== ENCOUNTER 2020-12-06 17:45 | Inpatient (IN) | payer MEDICARE, MEDICAID ==
[~2020-12-06] VITALS: Ht 152.4 cm; Wt 49.1 kg
[2020-12-06 18:21] LABS: Basophils # (auto) 0.1 10 ^3/uL (0-0.2); Basophils % (auto) 1.9 % (0.0-2.0); Eosinophils # (auto) 0.2 10 ^3/uL (0-0.8); Eosinophils % (auto) 5.6 % (0.0-7.0); Hematocrit 32.9 % (36.0-46.0); Hemoglobin 10.7 g/dL (12.2-16.2); Lymphocytes # (auto) 0.4 10 ^3/uL (0.4-5.4); Lymphocytes % (auto) 14.3 % (10.0-50.0); Mean Corpuscular Hemoglobin 28.3 pg (28.0-32.0); Mean Corpuscular Hgb Conc. 32.5 g/dL (32.0-36.0); Mean Corpuscular Volume 87.1 fL (80.0-100.0); Monocytes # (auto) 0.2 10 ^3/uL (0-1.3); Monocytes % (auto) 6.2 % (0.0-12.0); Nucleated Red Blood Cells % 0.1 %; Red Blood Cells 3.78 10^6/uL (4.0-5.20); Red Cell Distribution Width 18.4 % (11.8-14.3); White Blood Cell 2.8 10^3/uL (4.4-10.8)
[2020-12-06 18:43] LABS: Albumin 2.9 g/dL (3.4-5.0); Calcium 10.6 mg/dL (8.5-10.1); Magnesium 2.7 mg/dL (1.6-2.6); Potassium 4.7 mmol/L (3.5-5.1)
[2020-12-06 18:48] LABS: Bilirubin, Total 0.4 mg/dL (0.2-1.0); Total Protein 6.8 g/dL (6.4-8.2)
[2020-12-06] MEDS ORDERED: MORPHINE SULFATE 4 MG/ML SYR/VIAL IV ONE (19:15)
[2020-12-06] MEDS ORDERED: ONDANSETRON HCL 4 MG/2 ML VIAL IV ONE (19:15)
[2020-12-06 20:16] LABS: INR 1.08 (0.9-1.15); Partial Thromboplastin Time 25.6 sec (23.6-33.0)
[2020-12-07] MEDS ORDERED: NITROGLYCERIN 0.2MG/HR TOPICAL PATCH TD ONE (02:15)
[2020-12-07] MEDS ORDERED: ONDANSETRON HCL 4 MG/2 ML VIAL IV PRN (07:15)
[2020-12-07] MEDS ORDERED: ACETAMINOPHEN 325 MG TAB PO PRN (07:15)
[2020-12-07] MEDS ORDERED: TEMAZEPAM 15 MG CAP PO PRN (07:15)
[2020-12-07] MEDS ORDERED: DEXTROSE (50%) 50ML SYRG IV PRN (07:15)
[2020-12-07] MEDS ORDERED: CALCIUM ACETATE 667 MG CAP PO SCH (08:00)
[2020-12-07] MEDS: NIFEdipine ER 30 MG TAB PO SCH (10:03)
[2020-12-07] MEDS: CLOPIDOGREL BISULFATE 75 MG TAB PO SCH (10:03)
[2020-12-07] MEDS: PANTOPRAZOLE 40 MG TAB PO SCH ×2 (10:03→23:22)
[2020-12-07] MEDS: CARVEDILOL 12.5 MG TAB PO SCH ×2 (10:04→23:24)
[2020-12-07] MEDS: SERTRALINE HCL 50 MG TAB PO SCH (10:04)
[2020-12-07] MEDS ORDERED: cloNIDine HCL 0.1 MG TAB PO PRN (11:00)
[2020-12-07] MEDS: NITROGLYCERIN 50MG/250ML 250 ML IV SCH (11:26)
[2020-12-07] MEDS: SUCRALFATE 1 GM TAB PO SCH ×3 (11:30→23:22)
[2020-12-07] MEDS: InsuLIN REG 1unit/0.01ml Soln (100units/ml) SC SCH ×3 (12:00→23:51)
[2020-12-07] MEDS: ACCU-CHEK COMFORT CURVE STRIP VI SCH ×3 (12:00→23:50)
[2020-12-07] MEDS: metroNIDAZOLE 500MG/100ML 100 ML IV SCH ×2 (14:08→14:09)
[2020-12-07] MEDS ORDERED: METO10TA3 PO (14:51)
[2020-12-07] MEDS ORDERED: LACT10SO3 PO (14:51)
[2020-12-07] MEDS ORDERED: SUVO1TAB3 PO (14:51)
[2020-12-07] MEDS ORDERED: SEVE800T20 PO (14:51)
[2020-12-07] MEDS ORDERED: ATOR40TA52 PO (14:51)
[2020-12-07] MEDS ORDERED: ACET-6 PO (14:51)
[2020-12-07] MEDS: D5W 5% 1,000 ML IV SCH (18:33)
[2020-12-07] MEDS: HYDROcodone-ACET 5/325MG TAB PO PRN (21:26)
[2020-12-07] MEDS: METOCLOPRAMIDE HCL 5MG/ml INJ 2ml VIAL IV SCH (23:21)
[2020-12-07] MEDS: ATORVASTATIN 20 MG TAB PO SCH (23:22)
[2020-12-08 05:43] LABS: Basophils # (auto) 0 10 ^3/uL (0-0.2); Basophils % (auto) 0.8 % (0.0-2.0); Eosinophils # (auto) 0.2 10 ^3/uL (0-0.8); Eosinophils % (auto) 3.6 % (0.0-7.0); Hematocrit 31.4 % (36.0-46.0); Hemoglobin 10.7 g/dL (12.2-16.2); Lymphocytes # (auto) 0.5 10 ^3/uL (0.4-5.4); Lymphocytes % (auto) 11.4 % (10.0-50.0); Mean Corpuscular Hgb Conc. 34.1 g/dL (32.0-36.0); Mean Corpuscular Volume 87.7 fL (80.0-100.0); Monocytes # (auto) 0.3 10 ^3/uL (0-1.3); Monocytes % (auto) 7.5 % (0.0-12.0); Neutrophils # (auto) 3.6 10 ^3/uL (1.6-8.6); Neutrophils % (auto) 76.7 % (37.0-80.0); Red Blood Cells 3.58 10^6/uL (4.0-5.20); Red Cell Distribution Width 18.3 % (11.8-14.3); White Blood Cell 4.7 10^3/uL (4.4-10.8)
[2020-12-08] MEDS: METOCLOPRAMIDE HCL 5MG/ml INJ 2ml VIAL IV SCH ×3 (06:17→22:17)
[2020-12-08] MEDS: metroNIDAZOLE 500MG/100ML 100 ML IV SCH ×3 (06:17→22:14)
[2020-12-08] MEDS: ACCU-CHEK COMFORT CURVE STRIP VI SCH ×3 (06:18→17:56)
[2020-12-08] MEDS: InsuLIN REG 1unit/0.01ml Soln (100units/ml) SC SCH ×3 (06:20→17:57)
[2020-12-08 06:30] LABS: Calcium 10.6 mg/dL (8.5-10.1); Potassium 4.9 mmol/L (3.5-5.1)
[2020-12-08 06:36] LABS: Albumin 2.5 g/dL (3.4-5.0); BUN/Creatinine Ratio 7.1; Bilirubin, Total 0.4 mg/dL (0.2-1.0); Phosphorus 1.2 mg/dL (2.5-4.90); Total Protein 6.2 g/dL (6.4-8.2)
[2020-12-08] MEDS: SUCRALFATE 1 GM TAB PO SCH ×4 (07:04→22:17)
[2020-12-08] MEDS ORDERED: SODIUM PHOSPHATES 24 MEQ in SODIUM CHL 0.9% 100 ML IV ONE (10:00)
[2020-12-08] MEDS: CARVEDILOL 12.5 MG TAB PO SCH ×2 (10:46→22:15)
[2020-12-08] MEDS: CLOPIDOGREL BISULFATE 75 MG TAB PO SCH (10:47)
[2020-12-08] MEDS: PANTOPRAZOLE 40 MG TAB PO SCH ×2 (10:47→22:17)
[2020-12-08] MEDS: NIFEdipine ER 30 MG TAB PO SCH (10:47)
[2020-12-08] MEDS: SERTRALINE HCL 50 MG TAB PO SCH (10:47)
[2020-12-08] MEDS: NITROGLYCERIN 50MG/250ML 250 ML IV SCH (12:40)
[2020-12-08] MEDS: D5W 5% 1,000 ML IV SCH (14:58)
[2020-12-08] MEDS: ATORVASTATIN 20 MG TAB PO SCH (22:15)
[2020-12-09] MEDS: ACCU-CHEK COMFORT CURVE STRIP VI SCH ×4 (00:26→17:50)
[2020-12-09] MEDS ORDERED: LORazepam 2MG/ML-1ML VIAL ONE (04:17)
[2020-12-09] MEDS ORDERED: LORazepam 2MG/ML-1ML VIAL IV ONE ×2 (04:30→18:45)
[2020-12-09] MEDS: metroNIDAZOLE 500MG/100ML 100 ML IV SCH ×3 (06:00→21:48)
[2020-12-09] MEDS: METOCLOPRAMIDE HCL 5MG/ml INJ 2ml VIAL IV SCH (06:00)
[2020-12-09] MEDS ORDERED: SODIUM CHL 0.9% 1000 ML BAG XX ONE (07:00)
[2020-12-09] MEDS: SUCRALFATE 1 GM TAB PO SCH ×4 (07:40→23:00)
[2020-12-09] MEDS: NIFEdipine ER 30 MG TAB PO SCH (12:00)
[2020-12-09] MEDS: SERTRALINE HCL 50 MG TAB PO SCH (12:00)
[2020-12-09] MEDS: CLOPIDOGREL BISULFATE 75 MG TAB PO SCH (12:00)
[2020-12-09] MEDS: CARVEDILOL 12.5 MG TAB PO SCH ×2 (12:00→23:00)
[2020-12-09] MEDS: PANTOPRAZOLE 40 MG TAB PO SCH ×2 (12:00→23:00)
[2020-12-09] MEDS ORDERED: METOCLOPRAMIDE HCL 10 MG TAB PO SCH (14:00)
[2020-12-09] MEDS: METOCLOPRAMIDE HCL 10 MG TAB PO SCH ×2 (14:00→23:00)
[2020-12-09] MEDS: InsuLIN REG 1unit/0.01ml Soln (100units/ml) SC SCH ×2 (17:50)
[2020-12-09] MEDS ORDERED: SODIUM ZIRCONIUM CYCL 10 GM PAK PO ONE (18:15)
[2020-12-09 21:30] VITALS: BP 147/62
[2020-12-09] MEDS: D5W 5% 1,000 ML IV SCH (21:48)
[2020-12-09 22:00] VITALS: BP 147/62
[2020-12-09] MEDS: ATORVASTATIN 20 MG TAB PO SCH (23:00)
[2020-12-10] MEDS: HYDROcodone-ACET 5/325MG TAB PO PRN (01:24)
[2020-12-10 05:00] VITALS: BP 152/68
[2020-12-10] MEDS: ACCU-CHEK COMFORT CURVE STRIP VI SCH ×4 (05:39→18:00)
[2020-12-10] MEDS: InsuLIN REG 1unit/0.01ml Soln (100units/ml) SC SCH ×4 (05:40→18:00)
[2020-12-10] MEDS: metroNIDAZOLE 500MG/100ML 100 ML IV SCH (06:00)
[2020-12-10] MEDS: METOCLOPRAMIDE HCL 10 MG TAB PO SCH ×2 (06:00→13:14)
[2020-12-10] MEDS: D5W 5% 1,000 ML IV SCH (06:12)
[2020-12-10] MEDS: SUCRALFATE 1 GM TAB PO SCH ×3 (07:00→17:00)
[2020-12-10] MEDS ORDERED: ALBUMIN 25% 100 ML IV ONE (07:45)
[2020-12-10 09:00] VITALS: BP 82/44
[2020-12-10] MEDS: CLOPIDOGREL BISULFATE 75 MG TAB PO SCH (09:58)
[2020-12-10] MEDS: CARVEDILOL 12.5 MG TAB PO SCH (09:58)
[2020-12-10] MEDS: NIFEdipine ER 30 MG TAB PO SCH (09:58)
[2020-12-10] MEDS: PANTOPRAZOLE 40 MG TAB PO SCH (09:59)
[2020-12-10] MEDS: SERTRALINE HCL 50 MG TAB PO SCH (09:59)
[2020-12-10 17:40] VITALS: BP 82/44
== END 2020-12-10 18:56 | disposition home or self-care (01) | DRG 391 ==
LOC: ER 17:45 → EDBD 17:45 → OVERFLOW 12-07 07:09 → TELE-WESTW 12-09 20:40
PROVIDERS: ADMIT Nurse Practitioner; ATTEND Internal Medicine
PROC: 5A1D70Z Performance of Urinary Filtration, Intermittent, Less than 6 Hours Per Day (ICD-10-PCS; principal; 2020-12-10)
DX: K52.9 Noninfective gastroenteritis and colitis, unspecified (principal); N18.6 End stage renal disease; I13.11 Hypertensive heart and chronic kidney disease without heart failure, with stage 5 chronic kidney disease, or end stage renal disease; E44.0 Moderate protein-calorie malnutrition; E78.5 Hyperlipidemia, unspecified; H54.8 Legal blindness, as defined in USA; K29.90 Gastroduodenitis, unspecified, without bleeding; E11.51 Type 2 diabetes mellitus with diabetic peripheral angiopathy without gangrene; D63.1 Anemia in chronic kidney disease; Z20.822 Contact with and (suspected) exposure to COVID-19; E11.22 Type 2 diabetes mellitus with diabetic chronic kidney disease; E11.43 Type 2 diabetes mellitus with diabetic autonomic (poly)neuropathy; E83.52 Hypercalcemia; F03.90 Unspecified dementia, unspecified severity, without behavioral disturbance, psychotic disturbance, mood disturbance, and anxiety; I16.0 Hypertensive urgency; K31.84 Gastroparesis; Z80.1 Family history of malignant neoplasm of trachea, bronchus and lung; Z88.8 Allergy status to other drugs, medicaments and biological substances; Z82.49 Family history of ischemic heart disease and other diseases of the circulatory system; Z90.710 Acquired absence of both cervix and uterus; Z99.2 Dependence on renal dialysis; Z68.21 Body mass index [BMI] 21.0-21.9, adult
CPT/HCPCS: 36415; 71045; 74176; 80053; 82962; 83690; 83735; 83880; 84100; 84484; 85025; 85379; 85610; 85730; 87426; 90935; 93005; 96374; 96375; G0378; J2405; J3490; P9047

== ENCOUNTER 2021-04-02 13:50 | Inpatient (IN) | payer MEDICARE, MEDICAID ==
[~2021-04-02] VITALS: Ht 162.6 cm; Wt 47.5 kg
[~2021-04-02 13:50] MED LIST changes: +ACET-6 PO; +ATOR40TA52 PO; +LACT10SO3 PO; +METO10TA3 PO; +SEVE800T20 PO; +SUVO1TAB3 PO
[2021-04-02 14:45] LABS: Basophils # (auto) 0 10 ^3/uL (0-0.2); Basophils % (auto) 0.3 % (0.0-2.0); Eosinophils # (auto) 0 10 ^3/uL (0-0.8); Eosinophils % (auto) 0.3 % (0.0-7.0); Hematocrit 34.7 % (36.0-46.0); Hemoglobin 11.6 g/dL (12.2-16.2); Lymphocytes # (auto) 0.2 10 ^3/uL (0.4-5.4); Lymphocytes % (auto) 5.1 % (10.0-50.0); Mean Corpuscular Hemoglobin 30.6 pg (28.0-32.0); Mean Corpuscular Hgb Conc. 33.5 g/dL (32.0-36.0); Mean Corpuscular Volume 91.3 fL (80.0-100.0); Monocytes # (auto) 0.1 10 ^3/uL (0-1.3); Neutrophils % (auto) 92.3 % (37.0-80.0); Nucleated Red Blood Cells % 0.2 %; Red Blood Cells 3.81 10^6/uL (4.0-5.20); Red Cell Distribution Width 16.1 % (11.8-14.3); White Blood Cell 3.2 10^3/uL (4.4-10.8)
[2021-04-02 14:58] LABS: Albumin 2.6 g/dL (3.4-5.0); Calcium 7.2 mg/dL (8.5-10.1); Potassium 4.5 mmol/L (3.5-5.1)
[2021-04-02 15:06] LABS: BUN/Creatinine Ratio 10.4; Bilirubin, Total 0.4 mg/dL (0.2-1.0); Total Protein 6.7 g/dL (6.4-8.2)
[2021-04-02 15:59] LABS: Urine Bacteria FEW /hpf (None Seen); Urine Blood Negative /uL (Negative); Urine Specific Gravity 1.013 (1.001-1.035); Urine WBC 2 /hpf (0 - 5)
[2021-04-02] MEDS ORDERED: cefTRIAXone 1GM/50ML D5W 50 ML IV ONE (16:45)
[2021-04-02] MEDS ORDERED: AZITHROMYCIN 500MG/ 250ML 250 ML IV ONE (16:45)
[2021-04-02] MEDS ORDERED: HEPARIN SODIUM (PORCINE) 5000 UNITS/ML 1ML VIAL IV ONE (17:45)
[2021-04-02] MEDS ORDERED: NITROGLYCERIN 0.4 MG SL TAB SL PRN (17:45)
[2021-04-02] MEDS ORDERED: MORPHINE SULFATE INJECTION 2 MG/ML SYRG IV PRN (17:45)
[2021-04-02] MEDS: HEPARIN DRIP/D5W 100UNITS/ML 250 ML IV SCH (20:26)
[2021-04-02 20:45] LABS: INR 1.07 (0.9-1.15); Partial Thromboplastin Time 33.5 sec (23.6-33.0)
[2021-04-03] MEDS ORDERED: LORazepam 2MG/ML-1ML VIAL IV PRN (00:45)
[2021-04-03 03:13] LABS: INR 1.11 (0.9-1.15)
[2021-04-03 03:17] LABS: Partial Thromboplastin Time > 139.0 sec (23.6-33.0)
[2021-04-03 05:16] LABS: Basophils # (auto) 0 10 ^3/uL (0-0.2); Basophils % (auto) 0.6 % (0.0-2.0); Eosinophils # (auto) 0 10 ^3/uL (0-0.8); Eosinophils % (auto) 0.2 % (0.0-7.0); Hemoglobin 10.7 g/dL (12.2-16.2); Lymphocytes # (auto) 0.1 10 ^3/uL (0.4-5.4); Lymphocytes % (auto) 2.9 % (10.0-50.0); Mean Corpuscular Hemoglobin 30.1 pg (28.0-32.0); Mean Corpuscular Hgb Conc. 33.3 g/dL (32.0-36.0); Mean Corpuscular Volume 90.5 fL (80.0-100.0); Monocytes # (auto) 0.1 10 ^3/uL (0-1.3); Monocytes % (auto) 2.2 % (0.0-12.0); Neutrophils # (auto) 3.4 10 ^3/uL (1.6-8.6); Neutrophils % (auto) 94.1 % (37.0-80.0); Nucleated Red Blood Cells % 0.1 %; Red Blood Cells 3.54 10^6/uL (4.0-5.20); Red Cell Distribution Width 15.7 % (11.8-14.3); White Blood Cell 3.6 10^3/uL (4.4-10.8)
[2021-04-03 05:49] LABS: Potassium 4.8 mmol/L (3.5-5.1)
[2021-04-03 05:56] LABS: Albumin 2.5 g/dL (3.4-5.0); BUN/Creatinine Ratio 10.5; Bilirubin, Total 0.4 mg/dL (0.2-1.0); Calcium 7.2 mg/dL (8.5-10.1); Total Protein 6.2 g/dL (6.4-8.2)
[2021-04-03 09:23] LABS: INR 1.06 (0.9-1.15); Partial Thromboplastin Time 45.8 sec (23.6-33.0)
[2021-04-03] MEDS: DexAMETHasone SOD PHOS 10MG/1ML VIAL INJ IV SCH (10:00)
[2021-04-03] MEDS ORDERED: ENOXAPARIN SOD 30 MG/0.3 ML SYRINGE SC SCH (10:00)
[2021-04-03] MEDS ORDERED: ETOMIDATE (2MG/ML) 20ML VIAL IV ONE ×2 (11:04→11:45)
[2021-04-03] MEDS ORDERED: SUCCINYLCHOLINE CHLORIDE 20 MG/ML 10ML VIAL IV ONE ×2 (11:05→11:45)
[2021-04-03 11:45] VITALS: BP 209/91
[2021-04-03] MEDS: MIDAZOLAM DRIP 50 mg/50mL 50 ML IV SCH ×2 (11:45→21:28)
[2021-04-03] MEDS ORDERED: MIDAZOLAM DRIP 50 mg/50mL 50 ML IV ONE (11:48)
[2021-04-03] MEDS ORDERED: ZINC SULFATE 220mg CAP or TAB PO ONE (13:00)
[2021-04-03] MEDS ORDERED: AZITHROMYCIN 500MG/ 250ML 250 ML IV ONE (13:00)
[2021-04-03] MEDS ORDERED: ASCORBIC ACID 500 MG TAB PO ONE (13:00)
[2021-04-03] MEDS ORDERED: ALBUTEROL SULF 2.5 MG/0.5ML(0.5%) NEB SOLN NEB SCH (14:00)
[2021-04-03] MEDS: ALBUTEROL SULF 2.5 MG/0.5ML(0.5%) NEB SOLN NEB SCH ×2 (14:00→22:06)
[2021-04-03] MEDS: IPRATROPIUM BROM 0.5 MG/2.5ML INH SOL NEB SCH ×2 (14:00→22:06)
[2021-04-03] MEDS ORDERED: IPRATROPIUM BROM 0.5 MG/2.5ML INH SOL NEB SCH ×2 (14:00)
[2021-04-03] MEDS ORDERED: IPRATROPIUM BROM 0.5 MG/2.5ML INH SOL ONE (14:06)
[2021-04-03 14:37] VITALS: BP 153/62
[2021-04-03] MEDS: HEPARIN DRIP/D5W 100UNITS/ML 250 ML IV SCH (17:45)
[2021-04-03 18:08] VITALS: BP 131/55
[2021-04-03 21:47] LABS: INR 1.1 (0.9-1.15); Partial Thromboplastin Time 64.1 sec (23.6-33.0)
[2021-04-03 22:06] VITALS: BP 125/51
[2021-04-03] MEDS ORDERED: DEXTROSE (50%) 50ML SYRG IV PRN (23:15)
[2021-04-04] VITALS (32 sets, daily range): BP systolic 71–181; BP diastolic 20–96
[2021-04-04] MEDS: MIDAZOLAM DRIP 50 mg/50mL 50 ML IV SCH ×3 (00:29→17:27)
[2021-04-04 05:02] LABS: INR 1.12 (0.9-1.15); Partial Thromboplastin Time 56.2 sec (23.6-33.0)
[2021-04-04] MEDS: ACCU-CHEK COMFORT CURVE STRIP VI SCH ×3 (07:00→17:00)
[2021-04-04] MEDS ORDERED: SODIUM CHL 0.9% 1000 ML BAG XX ONE (07:00)
[2021-04-04] MEDS: IPRATROPIUM BROM 0.5 MG/2.5ML INH SOL NEB SCH ×3 (08:15→22:00)
[2021-04-04] MEDS: ALBUTEROL SULF 2.5 MG/0.5ML(0.5%) NEB SOLN NEB SCH ×3 (08:15→22:00)
[2021-04-04] MEDS: InsuLIN REG 1unit/0.01ml Soln (100units/ml) SC SCH ×3 (08:28→17:00)
[2021-04-04] MEDS: AZITHROMYCIN 500MG/ 250ML 250 ML IV SCH (10:00)
[2021-04-04] MEDS: DexAMETHasone SOD PHOS 10MG/1ML VIAL INJ IV SCH (10:00)
[2021-04-04] MEDS: ASCORBIC ACID 500 MG TAB PO SCH (10:00)
[2021-04-04] MEDS: CLOPIDOGREL BISULFATE 75 MG TAB PO SCH (10:00)
[2021-04-04] MEDS: ZINC SULFATE 220mg CAP or TAB PO SCH (10:00)
[2021-04-04] MEDS: PANTOPRAZOLE 40 MG/10 ML VIAL INJ IV SCH (10:00)
[2021-04-04] MEDS: NOREPINEPHRINE 8 MG/250ML KIT 250 ML IV SCH ×2 (11:00→15:06)
[2021-04-04 11:16] LABS: INR 1.1 (0.9-1.15)
[2021-04-04 11:19] LABS: Partial Thromboplastin Time 79.1 sec (23.6-33.0)
[2021-04-04 11:49] LABS: Basophils # (auto) 0 10 ^3/uL (0-0.2); Basophils % (auto) 0.8 % (0.0-2.0); Eosinophils # (auto) 0 10 ^3/uL (0-0.8); Eosinophils % (auto) 0.1 % (0.0-7.0); Hematocrit 30.9 % (36.0-46.0); Lymphocytes # (auto) 0.1 10 ^3/uL (0.4-5.4); Mean Corpuscular Hemoglobin 29.4 pg (28.0-32.0); Mean Corpuscular Hgb Conc. 32.3 g/dL (32.0-36.0); Mean Corpuscular Volume 91.2 fL (80.0-100.0); Monocytes # (auto) 0 10 ^3/uL (0-1.3); Monocytes % (auto) 0.8 % (0.0-12.0); Neutrophils # (auto) 5.5 10 ^3/uL (1.6-8.6); Neutrophils % (auto) 96.3 % (37.0-80.0); Nucleated Red Blood Cells % 0.2 %; Red Blood Cells 3.39 10^6/uL (4.0-5.20); Red Cell Distribution Width 15.9 % (11.8-14.3); White Blood Cell 5.7 10^3/uL (4.4-10.8)
[2021-04-04 12:11] LABS: Albumin 1.9 g/dL (3.4-5.0); Calcium 7.3 mg/dL (8.5-10.1); Potassium 4.9 mmol/L (3.5-5.1)
[2021-04-04 12:14] LABS: BUN/Creatinine Ratio 10.4; Bilirubin, Total 0.4 mg/dL (0.2-1.0); Total Protein 5.6 g/dL (6.4-8.2)
[2021-04-04 18:16] LABS: INR 1.1 (0.9-1.15); Partial Thromboplastin Time 57.7 sec (23.6-33.0)
[2021-04-04] MEDS: HEPARIN DRIP/D5W 100UNITS/ML 250 ML IV SCH (19:00)
[2021-04-05] VITALS (88 sets, daily range): BP systolic 82–144; BP diastolic 39–67
[2021-04-05] MEDS: ACCU-CHEK COMFORT CURVE STRIP VI SCH ×5 (00:17→22:00)
[2021-04-05] MEDS: InsuLIN REG 1unit/0.01ml Soln (100units/ml) SC SCH ×5 (00:18→22:00)
[2021-04-05 01:52] LABS: INR 1.04 (0.9-1.15); Partial Thromboplastin Time 46.4 sec (23.6-33.0)
[2021-04-05 05:33] LABS: Basophils # (auto) 0 10 ^3/uL (0-0.2); Basophils % (auto) 0.4 % (0.0-2.0); Eosinophils # (auto) 0 10 ^3/uL (0-0.8); Hematocrit 33.6 % (36.0-46.0); Hemoglobin 10.8 g/dL (12.2-16.2); Lymphocytes # (auto) 0.1 10 ^3/uL (0.4-5.4); Lymphocytes % (auto) 1.8 % (10.0-50.0); Mean Corpuscular Hemoglobin 29.2 pg (28.0-32.0); Mean Corpuscular Hgb Conc. 32.2 g/dL (32.0-36.0); Mean Corpuscular Volume 90.7 fL (80.0-100.0); Monocytes # (auto) 0.2 10 ^3/uL (0-1.3); Monocytes % (auto) 2.7 % (0.0-12.0); Neutrophils # (auto) 5.9 10 ^3/uL (1.6-8.6); Neutrophils % (auto) 95.1 % (37.0-80.0); Nucleated Red Blood Cells % 0.4 %; Red Blood Cells 3.71 10^6/uL (4.0-5.20); Red Cell Distribution Width 16.4 % (11.8-14.3); White Blood Cell 6.2 10^3/uL (4.4-10.8)
[2021-04-05 05:50] LABS: INR 1.07 (0.9-1.15); Partial Thromboplastin Time 54.2 sec (23.6-33.0)
[2021-04-05 06:00] LABS: BUN/Creatinine Ratio 10.8; Bilirubin, Total 0.3 mg/dL (0.2-1.0); Calcium 7.5 mg/dL (8.5-10.1); Total Protein 5.4 g/dL (6.4-8.2)
[2021-04-05] MEDS: ALBUTEROL SULF 2.5 MG/0.5ML(0.5%) NEB SOLN NEB SCH ×3 (06:00→22:37)
[2021-04-05] MEDS: IPRATROPIUM BROM 0.5 MG/2.5ML INH SOL NEB SCH ×3 (06:00→22:37)
[2021-04-05] MEDS: ZINC SULFATE 220mg CAP or TAB PO SCH (10:15)
[2021-04-05] MEDS: AZITHROMYCIN 500MG/ 250ML 250 ML IV SCH (10:15)
[2021-04-05] MEDS: DexAMETHasone SOD PHOS 10MG/1ML VIAL INJ IV SCH (10:15)
[2021-04-05] MEDS: PANTOPRAZOLE 40 MG/10 ML VIAL INJ IV SCH (10:15)
[2021-04-05] MEDS: ASCORBIC ACID 500 MG TAB PO SCH (10:15)
[2021-04-05] MEDS: CLOPIDOGREL BISULFATE 75 MG TAB PO SCH (10:15)
[2021-04-05 14:47] LABS: INR 1.05 (0.9-1.15); Partial Thromboplastin Time 52.9 sec (23.6-33.0)
[2021-04-05] MEDS: HEPARIN DRIP/D5W 100UNITS/ML 250 ML IV SCH (17:45)
[2021-04-05] MEDS: MIDAZOLAM DRIP 50 mg/50mL 50 ML IV SCH (20:00)
[2021-04-05 20:59] LABS: INR 1.05 (0.9-1.15); Partial Thromboplastin Time 50.8 sec (23.6-33.0)
[2021-04-06] VITALS (84 sets, daily range): BP systolic 74–164; BP diastolic 37–87
[2021-04-06 05:33] LABS: Basophils # (auto) 0 10 ^3/uL (0-0.2); Basophils % (auto) 0.2 % (0.0-2.0); Eosinophils # (auto) 0 10 ^3/uL (0-0.8); Hematocrit 32.2 % (36.0-46.0); Hemoglobin 10.4 g/dL (12.2-16.2); Lymphocytes # (auto) 0.1 10 ^3/uL (0.4-5.4); Lymphocytes % (auto) 1.7 % (10.0-50.0); Mean Corpuscular Hemoglobin 29.5 pg (28.0-32.0); Mean Corpuscular Hgb Conc. 32.4 g/dL (32.0-36.0); Monocytes # (auto) 0.3 10 ^3/uL (0-1.3); Monocytes % (auto) 3.8 % (0.0-12.0); Neutrophils # (auto) 7.8 10 ^3/uL (1.6-8.6); Neutrophils % (auto) 94.3 % (37.0-80.0); Nucleated Red Blood Cells % 0.2 %; Red Blood Cells 3.54 10^6/uL (4.0-5.20); Red Cell Distribution Width 16.1 % (11.8-14.3); White Blood Cell 8.3 10^3/uL (4.4-10.8)
[2021-04-06 05:42] LABS: INR 1.02 (0.9-1.15); Partial Thromboplastin Time 52.6 sec (23.6-33.0)
[2021-04-06 05:53] LABS: Albumin 1.8 g/dL (3.4-5.0); BUN/Creatinine Ratio 12.1; Calcium 7.8 mg/dL (8.5-10.1)
[2021-04-06 05:56] LABS: Bilirubin, Total 0.3 mg/dL (0.2-1.0); Total Protein 5.2 g/dL (6.4-8.2)
[2021-04-06] MEDS: InsuLIN REG 1unit/0.01ml Soln (100units/ml) SC SCH ×5 (06:58→22:00)
[2021-04-06] MEDS: ACCU-CHEK COMFORT CURVE STRIP VI SCH ×4 (07:00→22:00)
[2021-04-06] MEDS: ALBUTEROL SULF 2.5 MG/0.5ML(0.5%) NEB SOLN NEB SCH ×3 (07:02→23:28)
[2021-04-06] MEDS: IPRATROPIUM BROM 0.5 MG/2.5ML INH SOL NEB SCH ×3 (07:02→23:28)
[2021-04-06] MEDS: AZITHROMYCIN 500MG/ 250ML 250 ML IV SCH (10:00)
[2021-04-06] MEDS: CLOPIDOGREL BISULFATE 75 MG TAB PO SCH (11:06)
[2021-04-06] MEDS: ASCORBIC ACID 500 MG TAB PO SCH (11:06)
[2021-04-06] MEDS: ZINC SULFATE 220mg CAP or TAB PO SCH (11:06)
[2021-04-06] MEDS: DexAMETHasone SOD PHOS 10MG/1ML VIAL INJ IV SCH (11:06)
[2021-04-06] MEDS: PANTOPRAZOLE 40 MG/10 ML VIAL INJ IV SCH (11:07)
[2021-04-06] MEDS ORDERED: LABETALOL HCL 5 MG/ML 4ML SYRINGE IV ONE ×2 (20:29→20:30)
[2021-04-06] MEDS ORDERED: ALBUMIN 5% 250 ML IV ONE (21:00)
[2021-04-06 21:32] LABS: Calcium 7.8 mg/dL (8.5-10.1); Potassium 4.1 mmol/L (3.5-5.1)
[2021-04-06 21:39] LABS: Albumin 2.1 g/dL (3.4-5.0); BUN/Creatinine Ratio 10.3; Bilirubin, Total 0.4 mg/dL (0.2-1.0); Magnesium 3.1 mg/dL (1.6-2.6); Phosphorus 4.5 mg/dL (2.5-4.90)
[2021-04-07] VITALS (88 sets, daily range): BP systolic 83–167; BP diastolic 42–84
[2021-04-07 04:47] LABS: Basophils # (auto) 0 10 ^3/uL (0-0.2); Eosinophils # (auto) 0 10 ^3/uL (0-0.8); Hemoglobin 10.5 g/dL (12.2-16.2); Lymphocytes # (auto) 0.1 10 ^3/uL (0.4-5.4); Mean Corpuscular Hemoglobin 29.8 pg (28.0-32.0); Monocytes # (auto) 0.5 10 ^3/uL (0-1.3); Monocytes % (auto) 4.3 % (0.0-12.0); Nucleated Red Blood Cells % 0.1 %; White Blood Cell 10.6 10^3/uL (4.4-10.8)
[2021-04-07 04:49] LABS: Basophils % (auto) 0.1 % (0.0-2.0); Hematocrit 31.8 % (36.0-46.0); Lymphocytes % (auto) 0.6 % (10.0-50.0); Mean Corpuscular Hgb Conc. 33.1 g/dL (32.0-36.0); Mean Corpuscular Volume 90.1 fL (80.0-100.0); Neutrophils # (auto) 10.1 10 ^3/uL (1.6-8.6); Red Blood Cells 3.53 10^6/uL (4.0-5.20); Red Cell Distribution Width 16.1 % (11.8-14.3)
[2021-04-07 05:00] LABS: INR 1.04 (0.9-1.15); Partial Thromboplastin Time 36.9 sec (23.6-33.0)
[2021-04-07 05:10] LABS: Albumin 2.3 g/dL (3.4-5.0); BUN/Creatinine Ratio 10.8; Calcium 8.1 mg/dL (8.5-10.1); Potassium 4.6 mmol/L (3.5-5.1)
[2021-04-07 05:13] LABS: Bilirubin, Total 0.3 mg/dL (0.2-1.0); Total Protein 5.8 g/dL (6.4-8.2)
[2021-04-07] MEDS: ACCU-CHEK COMFORT CURVE STRIP VI SCH ×4 (06:50→22:00)
[2021-04-07] MEDS: InsuLIN REG 1unit/0.01ml Soln (100units/ml) SC SCH ×4 (06:50→22:00)
[2021-04-07] MEDS: PANTOPRAZOLE 40 MG/10 ML VIAL INJ IV SCH (10:05)
[2021-04-07] MEDS: AZITHROMYCIN 500MG/ 250ML 250 ML IV SCH (10:05)
[2021-04-07] MEDS: DexAMETHasone SOD PHOS 10MG/1ML VIAL INJ IV SCH (10:06)
[2021-04-07] MEDS: ZINC SULFATE 220mg CAP or TAB PO SCH (10:06)
[2021-04-07] MEDS: CLOPIDOGREL BISULFATE 75 MG TAB PO SCH (10:06)
[2021-04-07] MEDS: ASCORBIC ACID 500 MG TAB PO SCH (10:06)
[2021-04-07] MEDS: MIDAZOLAM DRIP 50 mg/50mL 50 ML IV SCH (11:45)
[2021-04-07] MEDS: IPRATROPIUM BROM 0.5 MG/2.5ML INH SOL NEB SCH (18:54)
[2021-04-07] MEDS: ALBUTEROL SULF 2.5 MG/0.5ML(0.5%) NEB SOLN NEB SCH (18:54)
[2021-04-08] VITALS (95 sets, daily range): BP systolic 86–170; BP diastolic 36–65
[2021-04-08 04:31] LABS: Basophils # (auto) 0 10 ^3/uL (0-0.2); Eosinophils # (auto) 0 10 ^3/uL (0-0.8); Mean Corpuscular Volume 90.4 fL (80.0-100.0); Monocytes # (auto) 0.2 10 ^3/uL (0-1.3)
[2021-04-08 04:34] LABS: Basophils % (auto) 0.2 % (0.0-2.0); Hematocrit 26.5 % (36.0-46.0); Hemoglobin 8.8 g/dL (12.2-16.2); Lymphocytes # (auto) 0 10 ^3/uL (0.4-5.4); Lymphocytes % (auto) 0.4 % (10.0-50.0); Mean Corpuscular Hemoglobin 30.2 pg (28.0-32.0); Mean Corpuscular Hgb Conc. 33.4 g/dL (32.0-36.0); Monocytes % (auto) 1.9 % (0.0-12.0); Neutrophils # (auto) 9.3 10 ^3/uL (1.6-8.6); Neutrophils % (auto) 97.5 % (37.0-80.0); Red Blood Cells 2.93 10^6/uL (4.0-5.20); Red Cell Distribution Width 15.7 % (11.8-14.3); White Blood Cell 9.5 10^3/uL (4.4-10.8)
[2021-04-08 04:57] LABS: Potassium 4.3 mmol/L (3.5-5.1)
[2021-04-08 05:05] LABS: BUN/Creatinine Ratio 10.9; Bilirubin, Total 0.3 mg/dL (0.2-1.0); Calcium 8.1 mg/dL (8.5-10.1); Total Protein 5.9 g/dL (6.4-8.2)
[2021-04-08] MEDS: ACCU-CHEK COMFORT CURVE STRIP VI SCH ×4 (06:31→21:49)
[2021-04-08] MEDS: InsuLIN REG 1unit/0.01ml Soln (100units/ml) SC SCH ×4 (06:31→21:54)
[2021-04-08] MEDS: ALBUTEROL SULF 2.5 MG/0.5ML(0.5%) NEB SOLN NEB SCH ×3 (09:52→19:15)
[2021-04-08] MEDS: IPRATROPIUM BROM 0.5 MG/2.5ML INH SOL NEB SCH ×3 (09:52→19:15)
[2021-04-08] MEDS: DexAMETHasone SOD PHOS 10MG/1ML VIAL INJ IV SCH (10:33)
[2021-04-08] MEDS: ZINC SULFATE 220mg CAP or TAB PO SCH (10:34)
[2021-04-08] MEDS: PANTOPRAZOLE 40 MG/10 ML VIAL INJ IV SCH (10:34)
[2021-04-08] MEDS: AZITHROMYCIN 500MG/ 250ML 250 ML IV SCH (10:34)
[2021-04-08] MEDS: CLOPIDOGREL BISULFATE 75 MG TAB PO SCH (10:35)
[2021-04-08] MEDS: ASCORBIC ACID 500 MG TAB PO SCH (10:35)
[2021-04-08] MEDS: MIDAZOLAM DRIP 50 mg/50mL 50 ML IV SCH (21:48)
[2021-04-09] VITALS (89 sets, daily range): BP systolic 70–174; BP diastolic 36–124
[2021-04-09 04:53] LABS: Hemoglobin 8.8 g/dL (12.2-16.2); Mean Corpuscular Volume 91.3 fL (80.0-100.0); White Blood Cell 9.5 10^3/uL (4.4-10.8)
[2021-04-09 04:56] LABS: Hematocrit 26.5 % (36.0-46.0); Mean Corpuscular Hemoglobin 30.4 pg (28.0-32.0); Mean Corpuscular Hgb Conc. 33.3 g/dL (32.0-36.0); Red Cell Distribution Width 15.4 % (11.8-14.3)
[2021-04-09 05:05] LABS: Basophils % (manual) 0 (0.0-2.0); Blast Cells 0; Eosinophils % (manual) 0 (0-7); Metamyelocytes % 0; Myelocytes % 0; Promyelocytes % 0; Reactive Lymphocytes 0
[2021-04-09 05:10] LABS: Potassium 4.3 mmol/L (3.5-5.1)
[2021-04-09 05:21] LABS: Albumin 1.9 g/dL (3.4-5.0); BUN/Creatinine Ratio 11.2; Calcium 8.7 mg/dL (8.5-10.1)
[2021-04-09 05:23] LABS: Bilirubin, Total 0.4 mg/dL (0.2-1.0)
[2021-04-09] MEDS: ALBUTEROL SULF 2.5 MG/0.5ML(0.5%) NEB SOLN NEB SCH ×3 (06:04→22:07)
[2021-04-09] MEDS: IPRATROPIUM BROM 0.5 MG/2.5ML INH SOL NEB SCH ×3 (06:04→22:07)
[2021-04-09] MEDS: ACCU-CHEK COMFORT CURVE STRIP VI SCH ×4 (06:28→22:06)
[2021-04-09] MEDS: InsuLIN REG 1unit/0.01ml Soln (100units/ml) SC SCH ×4 (06:28→23:17)
[2021-04-09 07:43] LABS: Band Neutrophils % (manual) 4; Lymphocytes % (manual) 1 (10.0-50.0); Monocytes % (manual) 3 (0-12)
[2021-04-09] MEDS ORDERED: AMIODARONE HCL 150 MG in D5W 5% 100 ML IV ONE (08:15)
[2021-04-09] MEDS ORDERED: AMIODARONE 450mg/250ml AE 250 ML IV SCH (08:30)
[2021-04-09] MEDS ORDERED: NOREPINEPHRINE BITARTRATE 16 MG in SODIUM CHL 0.9% 234 ML IV SCH (10:00)
[2021-04-09] MEDS: AZITHROMYCIN 500MG/ 250ML 250 ML IV SCH (10:01)
[2021-04-09] MEDS: DexAMETHasone SOD PHOS 10MG/1ML VIAL INJ IV SCH (10:01)
[2021-04-09] MEDS: ZINC SULFATE 220mg CAP or TAB PO SCH (10:01)
[2021-04-09] MEDS: PANTOPRAZOLE 40 MG/10 ML VIAL INJ IV SCH (10:01)
[2021-04-09] MEDS: CLOPIDOGREL BISULFATE 75 MG TAB PO SCH (10:02)
[2021-04-09] MEDS: ASCORBIC ACID 500 MG TAB PO SCH (10:02)
[2021-04-09] MEDS: MIDAZOLAM DRIP 50 mg/50mL 50 ML IV SCH ×2 (10:52→23:58)
[2021-04-09] MEDS ORDERED: DIGOXIN (250MCG/ML) 2 ML AMPULE IV ONE (15:00)
[2021-04-09] MEDS: AMIODARONE 450mg/250ml AE 250 ML IV SCH (22:00)
[2021-04-10] VITALS (81 sets, daily range): BP systolic 93–183; BP diastolic 35–70
[2021-04-10] MEDS: AMIODARONE 450mg/250ml AE 250 ML IV SCH ×2 (05:26→21:04)
[2021-04-10] MEDS: InsuLIN REG 1unit/0.01ml Soln (100units/ml) SC SCH ×4 (05:53→23:41)
[2021-04-10] MEDS: ACCU-CHEK COMFORT CURVE STRIP VI SCH ×4 (06:10→23:41)
[2021-04-10] MEDS: ALBUTEROL SULF 2.5 MG/0.5ML(0.5%) NEB SOLN NEB SCH ×3 (07:10→22:43)
[2021-04-10] MEDS: IPRATROPIUM BROM 0.5 MG/2.5ML INH SOL NEB SCH ×3 (07:10→22:43)
[2021-04-10] MEDS: DexAMETHasone SOD PHOS 10MG/1ML VIAL INJ IV SCH (09:30)
[2021-04-10] MEDS: PANTOPRAZOLE 40 MG/10 ML VIAL INJ IV SCH (09:30)
[2021-04-10] MEDS: ZINC SULFATE 220mg CAP or TAB PO SCH (09:30)
[2021-04-10] MEDS: AZITHROMYCIN 500MG/ 250ML 250 ML IV SCH (09:30)
[2021-04-10] MEDS: ASCORBIC ACID 500 MG TAB PO SCH (09:30)
[2021-04-10] MEDS: CLOPIDOGREL BISULFATE 75 MG TAB PO SCH (09:30)
[2021-04-10 10:30] LABS: Basophils # (auto) 0 10 ^3/uL (0-0.2); Basophils % (auto) 0.3 % (0.0-2.0); Eosinophils # (auto) 0 10 ^3/uL (0-0.8); Hemoglobin 8.2 g/dL (12.2-16.2); Monocytes # (auto) 0.1 10 ^3/uL (0-1.3); Neutrophils # (auto) 7.4 10 ^3/uL (1.6-8.6); Nucleated Red Blood Cells % 0.1 %; White Blood Cell 7.6 10^3/uL (4.4-10.8)
[2021-04-10 10:34] LABS: Hematocrit 25.3 % (36.0-46.0); Lymphocytes # (auto) 0.1 10 ^3/uL (0.4-5.4); Lymphocytes % (auto) 0.9 % (10.0-50.0); Mean Corpuscular Hgb Conc. 32.6 g/dL (32.0-36.0); Monocytes % (auto) 1.4 % (0.0-12.0); Neutrophils % (auto) 97.4 % (37.0-80.0); Red Blood Cells 2.75 10^6/uL (4.0-5.20); Red Cell Distribution Width 15.5 % (11.8-14.3)
[2021-04-10 10:35] LABS: Albumin 1.8 g/dL (3.4-5.0); Calcium 8.5 mg/dL (8.5-10.1); Magnesium 2.1 mg/dL (1.6-2.6); Potassium 4.7 mmol/L (3.5-5.1)
[2021-04-10 10:40] LABS: BUN/Creatinine Ratio 11.7; Bilirubin, Total 0.3 mg/dL (0.2-1.0); Phosphorus 5.6 mg/dL (2.5-4.90); Total Protein 5.8 g/dL (6.4-8.2)
[2021-04-10] MEDS ORDERED: SODIUM CHL 0.9% 1000 ML BAG XX ONE (15:15)
[2021-04-10] MEDS ORDERED: HEPARIN 1,000 UNITS/ml 1ML VIAL IV ONE (15:30)
[2021-04-10] MEDS: ALBUMIN 25% 100 ML IV SCH ×2 (16:00→17:00)
[2021-04-10] MEDS: NOREPINEPHRINE 8 MG/250ML KIT 250 ML IV SCH (16:05)
[2021-04-10] MEDS: fentaNYL Drip 2500mCg/250mlNS 250 ML IV SCH (16:45)
[2021-04-11] VITALS (81 sets, daily range): BP systolic 133–172; BP diastolic 43–57
[2021-04-11] MEDS: InsuLIN REG 1unit/0.01ml Soln (100units/ml) SC SCH ×4 (05:43→23:00)
[2021-04-11] MEDS: ACCU-CHEK COMFORT CURVE STRIP VI SCH ×4 (06:07→22:00)
[2021-04-11] MEDS: fentaNYL Drip 2500mCg/250mlNS 250 ML IV SCH (06:10)
[2021-04-11] MEDS: IPRATROPIUM BROM 0.5 MG/2.5ML INH SOL NEB SCH ×2 (07:13→14:13)
[2021-04-11] MEDS: ALBUTEROL SULF 2.5 MG/0.5ML(0.5%) NEB SOLN NEB SCH ×2 (07:13→14:13)
[2021-04-11] MEDS: AZITHROMYCIN 500MG/ 250ML 250 ML IV SCH (09:48)
[2021-04-11] MEDS: PANTOPRAZOLE 40 MG/10 ML VIAL INJ IV SCH (09:48)
[2021-04-11] MEDS: ZINC SULFATE 220mg CAP or TAB PO SCH (09:48)
[2021-04-11] MEDS: CLOPIDOGREL BISULFATE 75 MG TAB PO SCH (09:48)
[2021-04-11] MEDS: DexAMETHasone SOD PHOS 10MG/1ML VIAL INJ IV SCH (09:48)
[2021-04-11] MEDS: ASCORBIC ACID 500 MG TAB PO SCH (09:49)
[2021-04-11] MEDS: AMIODARONE 450mg/250ml AE 250 ML IV SCH (09:49)
[2021-04-11] MEDS: MIDAZOLAM DRIP 50 mg/50mL 50 ML IV SCH (11:45)
[2021-04-11] MEDS: NOREPINEPHRINE 8 MG/250ML KIT 250 ML IV SCH (15:45)
[2021-04-12] VITALS (30 sets, daily range): BP systolic 129–168; BP diastolic 40–78
[2021-04-12] MEDS: AMIODARONE 450mg/250ml AE 250 ML IV SCH ×3 (02:30→17:30)
[2021-04-12] MEDS: InsuLIN REG 1unit/0.01ml Soln (100units/ml) SC SCH ×4 (05:50→17:00)
[2021-04-12] MEDS: ACCU-CHEK COMFORT CURVE STRIP VI SCH ×3 (05:50→17:00)
[2021-04-12] MEDS: ALBUTEROL SULF 2.5 MG/0.5ML(0.5%) NEB SOLN NEB SCH ×3 (06:10→21:11)
[2021-04-12] MEDS: IPRATROPIUM BROM 0.5 MG/2.5ML INH SOL NEB SCH ×3 (06:10→21:11)
[2021-04-12 08:45] LABS: Basophils # (auto) 0 10 ^3/uL (0-0.2); Basophils % (auto) 0.2 % (0.0-2.0); Eosinophils # (auto) 0 10 ^3/uL (0-0.8); Hematocrit 23.5 % (36.0-46.0); Hemoglobin 7.6 g/dL (12.2-16.2); Lymphocytes # (auto) 0.1 10 ^3/uL (0.4-5.4); Lymphocytes % (auto) 1.2 % (10.0-50.0); Mean Corpuscular Hgb Conc. 32.4 g/dL (32.0-36.0); Mean Corpuscular Volume 92.8 fL (80.0-100.0); Monocytes # (auto) 0.2 10 ^3/uL (0-1.3); Neutrophils # (auto) 8.6 10 ^3/uL (1.6-8.6); Neutrophils % (auto) 96.6 % (37.0-80.0); Red Blood Cells 2.53 10^6/uL (4.0-5.20); Red Cell Distribution Width 15.8 % (11.8-14.3); White Blood Cell 8.9 10^3/uL (4.4-10.8)
[2021-04-12 10:35] LABS: Potassium 4.2 mmol/L (3.5-5.1)
[2021-04-12] MEDS: DexAMETHasone SOD PHOS 10MG/1ML VIAL INJ IV SCH (10:36)
[2021-04-12] MEDS: PANTOPRAZOLE 40 MG/10 ML VIAL INJ IV SCH (10:36)
[2021-04-12] MEDS: ZINC SULFATE 220mg CAP or TAB PO SCH (10:37)
[2021-04-12] MEDS: AZITHROMYCIN 500MG/ 250ML 250 ML IV SCH (10:37)
[2021-04-12] MEDS: ASCORBIC ACID 500 MG TAB PO SCH (10:37)
[2021-04-12] MEDS: CLOPIDOGREL BISULFATE 75 MG TAB PO SCH (10:37)
[2021-04-12 10:47] LABS: BUN/Creatinine Ratio 12.1; Calcium 8.1 mg/dL (8.5-10.1)
[2021-04-12] MEDS: MIDAZOLAM DRIP 50 mg/50mL 50 ML IV SCH (11:45)
[2021-04-12] MEDS: NOREPINEPHRINE 8 MG/250ML KIT 250 ML IV SCH (15:18)
[2021-04-12] MEDS: fentaNYL Drip 2500mCg/250mlNS 250 ML IV SCH (16:45)
[2021-04-13] VITALS (30 sets, daily range): BP systolic 123–191; BP diastolic 49–158
[2021-04-13] MEDS ORDERED: hydrALAZINE HCL 20 MG/ML VL ONE (03:08)
[2021-04-13] MEDS ORDERED: hydrALAZINE HCL 20 MG/ML VL IV ONE (03:15)
[2021-04-13 04:37] LABS: Basophils # (auto) 0 10 ^3/uL (0-0.2); Basophils % (auto) 0.1 % (0.0-2.0); Eosinophils # (auto) 0 10 ^3/uL (0-0.8); Hemoglobin 8.1 g/dL (12.2-16.2); Lymphocytes # (auto) 0.1 10 ^3/uL (0.4-5.4); Monocytes # (auto) 0.3 10 ^3/uL (0-1.3); Monocytes % (auto) 2.5 % (0.0-12.0); Neutrophils # (auto) 10.4 10 ^3/uL (1.6-8.6)
[2021-04-13 04:42] LABS: Hematocrit 24.7 % (36.0-46.0); Lymphocytes % (auto) 1.1 % (10.0-50.0); Mean Corpuscular Hemoglobin 30.4 pg (28.0-32.0); Mean Corpuscular Hgb Conc. 32.7 g/dL (32.0-36.0); Mean Corpuscular Volume 92.9 fL (80.0-100.0); Neutrophils % (auto) 96.3 % (37.0-80.0); Red Blood Cells 2.65 10^6/uL (4.0-5.20); Red Cell Distribution Width 15.5 % (11.8-14.3); White Blood Cell 10.7 10^3/uL (4.4-10.8)
[2021-04-13 04:58] LABS: Potassium 4.5 mmol/L (3.5-5.1)
[2021-04-13] MEDS: AMIODARONE 450mg/250ml AE 250 ML IV SCH ×2 (05:00→08:30)
[2021-04-13 05:05] LABS: BUN/Creatinine Ratio 13.7; Calcium 8.7 mg/dL (8.5-10.1)
[2021-04-13] MEDS: InsuLIN REG 1unit/0.01ml Soln (100units/ml) SC SCH ×4 (05:53→21:54)
[2021-04-13] MEDS: ACCU-CHEK COMFORT CURVE STRIP VI SCH ×5 (05:53→21:53)
[2021-04-13] MEDS: IPRATROPIUM BROM 0.5 MG/2.5ML INH SOL NEB SCH ×3 (06:02→18:27)
[2021-04-13] MEDS: ALBUTEROL SULF 2.5 MG/0.5ML(0.5%) NEB SOLN NEB SCH ×3 (06:03→18:27)
[2021-04-13] MEDS ORDERED: SODIUM CHL 0.9% 1000 ML BAG XX ONE (07:00)
[2021-04-13] MEDS: DexAMETHasone SOD PHOS 10MG/1ML VIAL INJ IV SCH (10:46)
[2021-04-13] MEDS: CLOPIDOGREL BISULFATE 75 MG TAB PO SCH (10:47)
[2021-04-13] MEDS: ZINC SULFATE 220mg CAP or TAB PO SCH (10:47)
[2021-04-13] MEDS: AZITHROMYCIN 500MG/ 250ML 250 ML IV SCH (10:47)
[2021-04-13] MEDS: ASCORBIC ACID 500 MG TAB PO SCH (10:47)
[2021-04-13] MEDS: PANTOPRAZOLE 40 MG/10 ML VIAL INJ IV SCH (10:47)
[2021-04-13] MEDS: SERTRALINE HCL 50 MG TAB PO SCH (10:56)
[2021-04-13] MEDS ORDERED: ALBUMIN 25% 200 ML IV ONE (11:24)
[2021-04-13] MEDS: MIDAZOLAM DRIP 50 mg/50mL 50 ML IV SCH (11:45)
[2021-04-13] MEDS: NOREPINEPHRINE 8 MG/250ML KIT 250 ML IV SCH (11:53)
[2021-04-13] MEDS: ALBUMIN 25% 100 ML IV SCH ×2 (11:56→13:00)
[2021-04-13] MEDS: fentaNYL Drip 2500mCg/250mlNS 250 ML IV SCH (16:25)
[2021-04-13] MEDS: hydrALAZINE HCL 20 MG/ML VL IV PRN (17:21)
[2021-04-14] VITALS (45 sets, daily range): BP systolic 111–180; BP diastolic 38–119
[2021-04-14] MEDS: ACCU-CHEK COMFORT CURVE STRIP VI SCH ×4 (05:58→22:00)
[2021-04-14] MEDS: InsuLIN REG 1unit/0.01ml Soln (100units/ml) SC SCH ×4 (05:59→22:00)
[2021-04-14] MEDS: hydrALAZINE HCL 20 MG/ML VL IV PRN ×2 (05:59→19:57)
[2021-04-14] MEDS: ALBUTEROL SULF 2.5 MG/0.5ML(0.5%) NEB SOLN NEB SCH ×3 (06:34→22:20)
[2021-04-14] MEDS: IPRATROPIUM BROM 0.5 MG/2.5ML INH SOL NEB SCH ×3 (06:35→22:20)
[2021-04-14] MEDS: ZINC SULFATE 220mg CAP or TAB PO SCH (10:39)
[2021-04-14] MEDS: PANTOPRAZOLE 40 MG/10 ML VIAL INJ IV SCH (10:39)
[2021-04-14] MEDS: AZITHROMYCIN 500MG/ 250ML 250 ML IV SCH (10:39)
[2021-04-14] MEDS: DexAMETHasone SOD PHOS 10MG/1ML VIAL INJ IV SCH (10:39)
[2021-04-14] MEDS: ASCORBIC ACID 500 MG TAB PO SCH (10:40)
[2021-04-14] MEDS: CLOPIDOGREL BISULFATE 75 MG TAB PO SCH (10:40)
[2021-04-14] MEDS: SERTRALINE HCL 50 MG TAB PO SCH (10:40)
[2021-04-14] MEDS: MIDAZOLAM DRIP 50 mg/50mL 50 ML IV SCH (11:45)
[2021-04-14] MEDS: AMIODARONE 450mg/250ml AE 250 ML IV SCH (14:03)
[2021-04-14] MEDS: NOREPINEPHRINE 8 MG/250ML KIT 250 ML IV SCH (15:45)
[2021-04-14] MEDS: fentaNYL Drip 2500mCg/250mlNS 250 ML IV SCH (15:47)
[2021-04-15] VITALS (53 sets, daily range): BP systolic 67–169; BP diastolic 28–83
[2021-04-15] MEDS: AMIODARONE 450mg/250ml AE 250 ML IV SCH (05:30)
[2021-04-15] MEDS: IPRATROPIUM BROM 0.5 MG/2.5ML INH SOL NEB SCH ×3 (06:11→21:49)
[2021-04-15] MEDS: ALBUTEROL SULF 2.5 MG/0.5ML(0.5%) NEB SOLN NEB SCH ×3 (06:11→21:49)
[2021-04-15] MEDS: ACCU-CHEK COMFORT CURVE STRIP VI SCH ×4 (06:55→22:24)
[2021-04-15] MEDS: InsuLIN REG 1unit/0.01ml Soln (100units/ml) SC SCH ×4 (06:56→22:00)
[2021-04-15] MEDS ORDERED: SODIUM CHL 0.9% 1000 ML BAG XX ONE (07:00)
[2021-04-15] MEDS: PANTOPRAZOLE 40 MG/10 ML VIAL INJ IV SCH (09:46)
[2021-04-15] MEDS: ASCORBIC ACID 500 MG TAB PO SCH (09:46)
[2021-04-15] MEDS: SERTRALINE HCL 50 MG TAB PO SCH (09:46)
[2021-04-15] MEDS: CLOPIDOGREL BISULFATE 75 MG TAB PO SCH (09:46)
[2021-04-15] MEDS: AZITHROMYCIN 500MG/ 250ML 250 ML IV SCH (09:46)
[2021-04-15] MEDS: ZINC SULFATE 220mg CAP or TAB PO SCH (09:46)
[2021-04-15 14:22] LABS: Basophils # (auto) 0 10 ^3/uL (0-0.2); Basophils % (auto) 0.3 % (0.0-2.0); Eosinophils # (auto) 0 10 ^3/uL (0-0.8); Hematocrit 26.8 % (36.0-46.0); Hemoglobin 8.6 g/dL (12.2-16.2); Lymphocytes # (auto) 0.1 10 ^3/uL (0.4-5.4); Lymphocytes % (auto) 0.8 % (10.0-50.0); Mean Corpuscular Hemoglobin 29.1 pg (28.0-32.0); Mean Corpuscular Volume 91.2 fL (80.0-100.0); Monocytes # (auto) 0.2 10 ^3/uL (0-1.3); Monocytes % (auto) 2.4 % (0.0-12.0); Neutrophils # (auto) 7.3 10 ^3/uL (1.6-8.6); Neutrophils % (auto) 96.5 % (37.0-80.0); Nucleated Red Blood Cells % 0.1 %; Red Blood Cells 2.94 10^6/uL (4.0-5.20); Red Cell Distribution Width 15.5 % (11.8-14.3); White Blood Cell 7.6 10^3/uL (4.4-10.8)
[2021-04-15 14:43] LABS: Albumin 2.4 g/dL (3.4-5.0); Calcium 8.5 mg/dL (8.5-10.1)
[2021-04-15 14:46] LABS: BUN/Creatinine Ratio 11.4; Bilirubin, Total 0.6 mg/dL (0.2-1.0); Total Protein 6.3 g/dL (6.4-8.2)
[2021-04-15] MEDS: NOREPINEPHRINE 8 MG/250ML KIT 250 ML IV SCH (15:45)
[2021-04-15] MEDS: fentaNYL Drip 2500mCg/250mlNS 250 ML IV SCH (16:45)
[2021-04-15] MEDS: MIDAZOLAM DRIP 50 mg/50mL 50 ML IV SCH (17:17)
[2021-04-16] VITALS (90 sets, daily range): BP systolic 100–165; BP diastolic 34–71
[2021-04-16] MEDS: ACCU-CHEK COMFORT CURVE STRIP VI SCH ×4 (05:28→22:14)
[2021-04-16] MEDS: InsuLIN REG 1unit/0.01ml Soln (100units/ml) SC SCH ×4 (05:28→22:00)
[2021-04-16] MEDS: hydrALAZINE HCL 20 MG/ML VL IV PRN (05:32)
[2021-04-16] MEDS: IPRATROPIUM BROM 0.5 MG/2.5ML INH SOL NEB SCH ×3 (06:02→22:56)
[2021-04-16] MEDS: ALBUTEROL SULF 2.5 MG/0.5ML(0.5%) NEB SOLN NEB SCH ×3 (06:02→22:55)
[2021-04-16] MEDS: AMIODARONE 450mg/250ml AE 250 ML IV SCH ×2 (07:42→07:43)
[2021-04-16] MEDS: PANTOPRAZOLE 40 MG/10 ML VIAL INJ IV SCH (09:07)
[2021-04-16] MEDS: SERTRALINE HCL 50 MG TAB PO SCH (09:07)
[2021-04-16] MEDS: ASCORBIC ACID 500 MG TAB PO SCH (09:07)
[2021-04-16] MEDS: ZINC SULFATE 220mg CAP or TAB PO SCH (09:07)
[2021-04-16] MEDS: CLOPIDOGREL BISULFATE 75 MG TAB PO SCH (09:07)
[2021-04-16] MEDS: AZITHROMYCIN 500MG/ 250ML 250 ML IV SCH (09:30)
[2021-04-16] MEDS: MIDAZOLAM DRIP 50 mg/50mL 50 ML IV SCH (11:45)
[2021-04-16] MEDS: NOREPINEPHRINE 8 MG/250ML KIT 250 ML IV SCH (12:10)
[2021-04-16 12:29] LABS: Albumin 2.2 g/dL (3.4-5.0); Calcium 8.5 mg/dL (8.5-10.1); Potassium 3.1 mmol/L (3.5-5.1)
[2021-04-16 12:33] LABS: Basophils # (auto) 0 10 ^3/uL (0-0.2); Basophils % (auto) 0.3 % (0.0-2.0); Eosinophils # (auto) 0 10 ^3/uL (0-0.8); Hemoglobin 7.6 g/dL (12.2-16.2); Lymphocytes # (auto) 0.1 10 ^3/uL (0.4-5.4); Lymphocytes % (auto) 1.9 % (10.0-50.0); Monocytes # (auto) 0.1 10 ^3/uL (0-1.3); Neutrophils # (auto) 6.5 10 ^3/uL (1.6-8.6); White Blood Cell 6.8 10^3/uL (4.4-10.8)
[2021-04-16 12:34] LABS: BUN/Creatinine Ratio 11.9; Bilirubin, Total 0.4 mg/dL (0.2-1.0); Hematocrit 23.2 % (36.0-46.0); Mean Corpuscular Hemoglobin 30.2 pg (28.0-32.0); Mean Corpuscular Hgb Conc. 32.7 g/dL (32.0-36.0); Mean Corpuscular Volume 92.3 fL (80.0-100.0); Monocytes % (auto) 1.9 % (0.0-12.0); Neutrophils % (auto) 95.9 % (37.0-80.0); Red Blood Cells 2.52 10^6/uL (4.0-5.20); Red Cell Distribution Width 15.3 % (11.8-14.3); Total Protein 6.2 g/dL (6.4-8.2)
[2021-04-16] MEDS: fentaNYL Drip 2500mCg/250mlNS 250 ML IV SCH (15:00)
[2021-04-17] VITALS (47 sets, daily range): BP systolic 105–162; BP diastolic 45–72
[2021-04-17] MEDS: AMIODARONE 450mg/250ml AE 250 ML IV SCH ×2 (02:30→16:59)
[2021-04-17 05:13] LABS: Basophils # (auto) 0 10 ^3/uL (0-0.2); Basophils % (auto) 0.1 % (0.0-2.0); Eosinophils # (auto) 0 10 ^3/uL (0-0.8); Lymphocytes # (auto) 0.1 10 ^3/uL (0.4-5.4); Lymphocytes % (auto) 1.1 % (10.0-50.0); Mean Corpuscular Hgb Conc. 32.7 g/dL (32.0-36.0)
[2021-04-17 05:17] LABS: Hematocrit 22.9 % (36.0-46.0); Hemoglobin 7.5 g/dL (12.2-16.2); Mean Corpuscular Volume 91.7 fL (80.0-100.0); Monocytes # (auto) 0.2 10 ^3/uL (0-1.3); Monocytes % (auto) 2.2 % (0.0-12.0); Neutrophils # (auto) 7.3 10 ^3/uL (1.6-8.6); Neutrophils % (auto) 96.6 % (37.0-80.0); Red Cell Distribution Width 15.5 % (11.8-14.3); White Blood Cell 7.5 10^3/uL (4.4-10.8)
[2021-04-17 05:35] LABS: Albumin 2.1 g/dL (3.4-5.0); Calcium 8.5 mg/dL (8.5-10.1); Potassium 3.1 mmol/L (3.5-5.1)
[2021-04-17 05:39] LABS: BUN/Creatinine Ratio 11.6; Bilirubin, Total 0.4 mg/dL (0.2-1.0); Total Protein 6.2 g/dL (6.4-8.2)
[2021-04-17] MEDS: InsuLIN REG 1unit/0.01ml Soln (100units/ml) SC SCH ×4 (06:13→22:41)
[2021-04-17] MEDS: ACCU-CHEK COMFORT CURVE STRIP VI SCH ×4 (06:13→22:41)
[2021-04-17] MEDS: IPRATROPIUM BROM 0.5 MG/2.5ML INH SOL NEB SCH ×3 (06:15→21:21)
[2021-04-17] MEDS: ALBUTEROL SULF 2.5 MG/0.5ML(0.5%) NEB SOLN NEB SCH ×3 (06:15→21:21)
[2021-04-17] MEDS ORDERED: SODIUM CHL 0.9% 1000 ML BAG XX ONE (07:00)
[2021-04-17] MEDS ORDERED: POTASSIUM CHL 10MEQ/50ML 50 ML IV SCH (08:00)
[2021-04-17] MEDS ORDERED: POTASSIUM EFFERVESENT TAB 25 MEQ GT ONE (08:15)
[2021-04-17] MEDS: SERTRALINE HCL 50 MG TAB PO SCH (09:02)
[2021-04-17] MEDS: ZINC SULFATE 220mg CAP or TAB PO SCH (09:02)
[2021-04-17] MEDS: CLOPIDOGREL BISULFATE 75 MG TAB PO SCH (09:02)
[2021-04-17] MEDS: PANTOPRAZOLE 40 MG/10 ML VIAL INJ IV SCH (09:02)
[2021-04-17] MEDS: AZITHROMYCIN 500MG/ 250ML 250 ML IV SCH (09:02)
[2021-04-17] MEDS: ASCORBIC ACID 500 MG TAB PO SCH (09:02)
[2021-04-17] MEDS: MIDAZOLAM DRIP 50 mg/50mL 50 ML IV SCH (11:27)
[2021-04-17] MEDS: NOREPINEPHRINE 8 MG/250ML KIT 250 ML IV SCH (15:45)
[2021-04-17] MEDS: fentaNYL Drip 2500mCg/250mlNS 250 ML IV SCH (16:19)
[2021-04-18] VITALS (23 sets, daily range): BP systolic 118–168; BP diastolic 46–69
[2021-04-18 05:29] LABS: Basophils # (auto) 0 10 ^3/uL (0-0.2); Basophils % (auto) 0.1 % (0.0-2.0); Eosinophils # (auto) 0 10 ^3/uL (0-0.8); Hematocrit 21.4 % (36.0-46.0); Hemoglobin 7.2 g/dL (12.2-16.2); Lymphocytes # (auto) 0.1 10 ^3/uL (0.4-5.4); Lymphocytes % (auto) 1.5 % (10.0-50.0); Mean Corpuscular Hemoglobin 30.9 pg (28.0-32.0); Mean Corpuscular Hgb Conc. 33.6 g/dL (32.0-36.0); Monocytes # (auto) 0.2 10 ^3/uL (0-1.3); Monocytes % (auto) 2.9 % (0.0-12.0); Neutrophils # (auto) 7.8 10 ^3/uL (1.6-8.6); Neutrophils % (auto) 95.5 % (37.0-80.0); Red Blood Cells 2.33 10^6/uL (4.0-5.20); White Blood Cell 8.2 10^3/uL (4.4-10.8)
[2021-04-18 05:59] LABS: Potassium 3.5 mmol/L (3.5-5.1)
[2021-04-18 06:11] LABS: Albumin 2.2 g/dL (3.4-5.0); BUN/Creatinine Ratio 12.2; Bilirubin, Total 0.6 mg/dL (0.2-1.0); Calcium 8.1 mg/dL (8.5-10.1); Total Protein 5.5 g/dL (6.4-8.2)
[2021-04-18] MEDS: InsuLIN REG 1unit/0.01ml Soln (100units/ml) SC SCH ×4 (06:47→22:00)
[2021-04-18] MEDS: ACCU-CHEK COMFORT CURVE STRIP VI SCH ×4 (06:47→22:00)
[2021-04-18] MEDS: ALBUTEROL SULF 2.5 MG/0.5ML(0.5%) NEB SOLN NEB SCH ×3 (07:00→23:23)
[2021-04-18] MEDS: IPRATROPIUM BROM 0.5 MG/2.5ML INH SOL NEB SCH ×3 (07:00→23:23)
[2021-04-18] MEDS: AMIODARONE 450mg/250ml AE 250 ML IV SCH ×2 (07:08→23:30)
[2021-04-18] MEDS: ASCORBIC ACID 500 MG TAB PO SCH (09:15)
[2021-04-18] MEDS: PANTOPRAZOLE 40 MG/10 ML VIAL INJ IV SCH (09:15)
[2021-04-18] MEDS: AZITHROMYCIN 500MG/ 250ML 250 ML IV SCH (09:15)
[2021-04-18] MEDS: CLOPIDOGREL BISULFATE 75 MG TAB PO SCH (09:15)
[2021-04-18] MEDS: SERTRALINE HCL 50 MG TAB PO SCH (09:15)
[2021-04-18] MEDS: ZINC SULFATE 220mg CAP or TAB PO SCH (09:15)
[2021-04-18] MEDS: MIDAZOLAM DRIP 50 mg/50mL 50 ML IV SCH (11:09)
[2021-04-18] MEDS: NOREPINEPHRINE 8 MG/250ML KIT 250 ML IV SCH (15:25)
[2021-04-18] MEDS: fentaNYL Drip 2500mCg/250mlNS 250 ML IV SCH (16:45)
[2021-04-19] VITALS (36 sets, daily range): BP systolic 88–162; BP diastolic 43–72
[2021-04-19 05:07] LABS: Basophils # (auto) 0 10 ^3/uL (0-0.2); Eosinophils # (auto) 0 10 ^3/uL (0-0.8); Eosinophils % (auto) 0.1 % (0.0-7.0); Lymphocytes # (auto) 0.2 10 ^3/uL (0.4-5.4); Monocytes # (auto) 0.1 10 ^3/uL (0-1.3); Neutrophils # (auto) 3.8 10 ^3/uL (1.6-8.6); White Blood Cell 4.1 10^3/uL (4.4-10.8)
[2021-04-19 05:09] LABS: Basophils % (auto) 0.4 % (0.0-2.0); Hematocrit 21.7 % (36.0-46.0); Mean Corpuscular Hemoglobin 29.8 pg (28.0-32.0); Mean Corpuscular Hgb Conc. 32.1 g/dL (32.0-36.0); Mean Corpuscular Volume 92.8 fL (80.0-100.0); Monocytes % (auto) 2.6 % (0.0-12.0); Neutrophils % (auto) 92.9 % (37.0-80.0); Nucleated Red Blood Cells % 0.1 %; Red Blood Cells 2.33 10^6/uL (4.0-5.20); Red Cell Distribution Width 15.1 % (11.8-14.3)
[2021-04-19 05:24] LABS: Potassium 3.8 mmol/L (3.5-5.1)
[2021-04-19 05:34] LABS: Albumin 1.9 g/dL (3.4-5.0); Calcium 9.3 mg/dL (8.5-10.1)
[2021-04-19 05:37] LABS: Bilirubin, Total 0.5 mg/dL (0.2-1.0); Total Protein 6.1 g/dL (6.4-8.2)
[2021-04-19] MEDS: ALBUTEROL SULF 2.5 MG/0.5ML(0.5%) NEB SOLN NEB SCH ×3 (06:24→22:22)
[2021-04-19] MEDS: IPRATROPIUM BROM 0.5 MG/2.5ML INH SOL NEB SCH ×3 (06:24→22:22)
[2021-04-19] MEDS: InsuLIN REG 1unit/0.01ml Soln (100units/ml) SC SCH ×4 (06:30→22:44)
[2021-04-19] MEDS: ACCU-CHEK COMFORT CURVE STRIP VI SCH ×4 (06:31→22:00)
[2021-04-19] MEDS: PANTOPRAZOLE 40 MG/10 ML VIAL INJ IV SCH (09:07)
[2021-04-19] MEDS: AZITHROMYCIN 500MG/ 250ML 250 ML IV SCH (09:08)
[2021-04-19] MEDS: ASCORBIC ACID 500 MG TAB PO SCH (09:09)
[2021-04-19] MEDS: SERTRALINE HCL 50 MG TAB PO SCH (09:09)
[2021-04-19] MEDS: CLOPIDOGREL BISULFATE 75 MG TAB PO SCH (09:09)
[2021-04-19] MEDS: ZINC SULFATE 220mg CAP or TAB PO SCH (09:09)
[2021-04-19] MEDS: MIDAZOLAM DRIP 50 mg/50mL 50 ML IV SCH (11:00)
[2021-04-19 12:23] LABS: Hemoglobin 7.2 g/dL (12.2-16.2)
[2021-04-19 12:26] LABS: Hematocrit 21.9 % (36.0-46.0)
[2021-04-19] MEDS: AMIODARONE 450mg/250ml AE 250 ML IV SCH (14:30)
[2021-04-19] MEDS: NOREPINEPHRINE 8 MG/250ML KIT 250 ML IV SCH (15:45)
[2021-04-19] MEDS: fentaNYL Drip 2500mCg/250mlNS 250 ML IV SCH (15:52)
[2021-04-20] VITALS (29 sets, daily range): BP systolic 122–161; BP diastolic 40–71
[2021-04-20 04:19] LABS: Basophils # (auto) 0 10 ^3/uL (0-0.2); Basophils % (auto) 0.2 % (0.0-2.0); Eosinophils # (auto) 0 10 ^3/uL (0-0.8); Lymphocytes # (auto) 0.1 10 ^3/uL (0.4-5.4); Lymphocytes % (auto) 2.3 % (10.0-50.0); Neutrophils # (auto) 5.3 10 ^3/uL (1.6-8.6); White Blood Cell 5.6 10^3/uL (4.4-10.8)
[2021-04-20 04:22] LABS: Mean Corpuscular Hemoglobin 29.4 pg (28.0-32.0); Mean Corpuscular Hgb Conc. 31.7 g/dL (32.0-36.0); Mean Corpuscular Volume 92.7 fL (80.0-100.0); Monocytes # (auto) 0.1 10 ^3/uL (0-1.3); Monocytes % (auto) 2.7 % (0.0-12.0); Neutrophils % (auto) 94.8 % (37.0-80.0); Nucleated Red Blood Cells % 0.1 %; Red Blood Cells 2.27 10^6/uL (4.0-5.20); Red Cell Distribution Width 15.4 % (11.8-14.3)
[2021-04-20 04:34] LABS: Albumin 1.9 g/dL (3.4-5.0); Calcium 9.3 mg/dL (8.5-10.1); Potassium 4.5 mmol/L (3.5-5.1)
[2021-04-20 04:37] LABS: BUN/Creatinine Ratio 12.8
[2021-04-20 04:40] LABS: Bilirubin, Total 0.5 mg/dL (0.2-1.0); Total Protein 6.3 g/dL (6.4-8.2)
[2021-04-20] MEDS: AMIODARONE 450mg/250ml AE 250 ML IV SCH ×2 (04:49→20:30)
[2021-04-20 04:54] LABS: Hemoglobin 6.7 g/dL (12.2-16.2)
[2021-04-20] MEDS: IPRATROPIUM BROM 0.5 MG/2.5ML INH SOL NEB SCH ×3 (06:30→18:46)
[2021-04-20] MEDS: ALBUTEROL SULF 2.5 MG/0.5ML(0.5%) NEB SOLN NEB SCH ×3 (06:30→18:46)
[2021-04-20] MEDS: ACCU-CHEK COMFORT CURVE STRIP VI SCH ×4 (06:33→22:00)
[2021-04-20] MEDS: InsuLIN REG 1unit/0.01ml Soln (100units/ml) SC SCH ×4 (06:34→22:00)
[2021-04-20] MEDS: ZINC SULFATE 220mg CAP or TAB PO SCH (10:00)
[2021-04-20] MEDS: PANTOPRAZOLE 40 MG/10 ML VIAL INJ IV SCH (10:08)
[2021-04-20] MEDS: SERTRALINE HCL 50 MG TAB PO SCH (10:09)
[2021-04-20] MEDS: CLOPIDOGREL BISULFATE 75 MG TAB PO SCH (10:09)
[2021-04-20] MEDS: AZITHROMYCIN 500MG/ 250ML 250 ML IV SCH (10:09)
[2021-04-20] MEDS: ASCORBIC ACID 500 MG TAB PO SCH (10:09)
[2021-04-20] MEDS: NOREPINEPHRINE 8 MG/250ML KIT 250 ML IV SCH (22:00)
[2021-04-20] MEDS: fentaNYL Drip 2500mCg/250mlNS 250 ML IV SCH (22:00)
[2021-04-20] MEDS: MIDAZOLAM DRIP 50 mg/50mL 50 ML IV SCH (22:00)
[2021-04-21] VITALS (15 sets, daily range): BP systolic 114–136; BP diastolic 20–57
[2021-04-21 03:53] LABS: Basophils # (auto) 0 10 ^3/uL (0-0.2); Eosinophils # (auto) 0 10 ^3/uL (0-0.8); Lymphocytes # (auto) 0.1 10 ^3/uL (0.4-5.4); Monocytes # (auto) 0.1 10 ^3/uL (0-1.3); White Blood Cell 5.1 10^3/uL (4.4-10.8)
[2021-04-21 03:56] LABS: Basophils % (auto) 0.3 % (0.0-2.0); Hematocrit 19.2 % (36.0-46.0); Mean Corpuscular Hemoglobin 29.8 pg (28.0-32.0); Mean Corpuscular Hgb Conc. 32.3 g/dL (32.0-36.0); Mean Corpuscular Volume 92.1 fL (80.0-100.0); Monocytes % (auto) 2.2 % (0.0-12.0); Neutrophils # (auto) 4.8 10 ^3/uL (1.6-8.6); Neutrophils % (auto) 94.5 % (37.0-80.0); Nucleated Red Blood Cells % 0.1 %; Red Blood Cells 2.08 10^6/uL (4.0-5.20); Red Cell Distribution Width 15.7 % (11.8-14.3)
[2021-04-21 04:15] LABS: Albumin 1.7 g/dL (3.4-5.0); Calcium 9.3 mg/dL (8.5-10.1); Potassium 4.4 mmol/L (3.5-5.1)
[2021-04-21 04:17] LABS: BUN/Creatinine Ratio 12.7
[2021-04-21 04:20] LABS: Bilirubin, Total 0.4 mg/dL (0.2-1.0); Total Protein 5.9 g/dL (6.4-8.2)
[2021-04-21 04:27] LABS: Hemoglobin 6.2 g/dL (12.2-16.2)
[2021-04-21] MEDS: InsuLIN REG 1unit/0.01ml Soln (100units/ml) SC SCH (05:50)
[2021-04-21] MEDS: ACCU-CHEK COMFORT CURVE STRIP VI SCH (05:50)
[2021-04-21] MEDS ORDERED: SODIUM CHL 0.9% 1000 ML BAG XX ONE (07:00)
[2021-04-21] MEDS ORDERED: EPINEPHrine HCL 1 MG/10 ML SYRG IV ONE (18:44)
[2021-04-21] MEDS ORDERED: EPOETIN ALFA-EPBX 10,000 UNIT/1ML VIAL SC ONE (21:00)
== END 2021-04-21 19:46 | DRG 870 ==
LOC: EDBD 13:50 → ER 13:50 → TELE 17:34 → ICU WEST 04-04 12:15
PROVIDERS: ADMIT Internal Medicine; ATTEND Family Medicine
PROC: 5A1955Z Respiratory Ventilation, Greater than 96 Consecutive Hours (ICD-10-PCS; 2021-04-03)
PROC: 0BH17EZ Insertion of Endotracheal Airway into Trachea, Via Natural or Artificial Opening (ICD-10-PCS; 2021-04-03)
PROC: 05HY33Z Insertion of Infusion Device into Upper Vein, Percutaneous Approach (ICD-10-PCS; principal; 2021-04-04)
PROC: 06HY33Z Insertion of Infusion Device into Lower Vein, Percutaneous Approach (ICD-10-PCS; 2021-04-04)
PROC: 5A1D70Z Performance of Urinary Filtration, Intermittent, Less than 6 Hours Per Day (ICD-10-PCS; 2021-04-04)
PROC: 5A1D70Z Performance of Urinary Filtration, Intermittent, Less than 6 Hours Per Day (ICD-10-PCS; 2021-04-06)
PROC: 5A1D70Z Performance of Urinary Filtration, Intermittent, Less than 6 Hours Per Day (ICD-10-PCS; 2021-04-08)
PROC: 5A1D70Z Performance of Urinary Filtration, Intermittent, Less than 6 Hours Per Day (ICD-10-PCS; 2021-04-10)
PROC: 5A1D70Z Performance of Urinary Filtration, Intermittent, Less than 6 Hours Per Day (ICD-10-PCS; 2021-04-13)
PROC: 5A1D70Z Performance of Urinary Filtration, Intermittent, Less than 6 Hours Per Day (ICD-10-PCS; 2021-04-15)
PROC: 5A1D70Z Performance of Urinary Filtration, Intermittent, Less than 6 Hours Per Day (ICD-10-PCS; 2021-04-18)
DX: A41.89 Other specified sepsis (principal); U07.1 COVID-19; J96.01 Acute respiratory failure with hypoxia; N18.6 End stage renal disease; J12.82 Pneumonia due to coronavirus disease 2019; G93.41 Metabolic encephalopathy; R65.21 Severe sepsis with septic shock; I21.4 Non-ST elevation (NSTEMI) myocardial infarction; G93.1 Anoxic brain damage, not elsewhere classified; T79.7XXA Traumatic subcutaneous emphysema, initial encounter; I12.0 Hypertensive chronic kidney disease with stage 5 chronic kidney disease or end stage renal disease; E88.09 Other disorders of plasma-protein metabolism, not elsewhere classified; Z66 Do not resuscitate; E11.22 Type 2 diabetes mellitus with diabetic chronic kidney disease; E11.65 Type 2 diabetes mellitus with hyperglycemia; W01.0XXA Fall on same level from slipping, tripping and stumbling without subsequent striking against object, initial encounter; E11.42 Type 2 diabetes mellitus with diabetic polyneuropathy; D63.1 Anemia in chronic kidney disease; E83.39 Other disorders of phosphorus metabolism; E87.70 Fluid overload, unspecified; E87.6 Hypokalemia; I48.91 Unspecified atrial fibrillation; F32.A Depression, unspecified; K21.9 Gastro-esophageal reflux disease without esophagitis; R79.89 Other specified abnormal findings of blood chemistry; Y93.89 Activity, other specified; Y92.098 Other place in other non-institutional residence as the place of occurrence of the external cause; Y99.8 Other external cause status
CPT/HCPCS: 36415; 36600; 70450; 71045; 71250; 80048; 80053; 81001; 82805; 82962; 83735; 83880; 84100; 84484; 85007; 85014; 85018; 85025; 85027; 85379; 85610; 85730; 86850; 86900; 86901; 86920; 87070; 87081; 87205; 87340; 87426; 90935; 93005; 93306; 93970; 94002; 94003; 94640; 95819; 96365; 96368; 99291; C9113; G0378; J0330; J0696; J1100; J1642; J1815; J2250; J3490; J7060; P9047